=== PATIENT | male | born 1955 | race African-American/Black ===

== ENCOUNTER 2017-09-16 13:40 | Observation (INO) | payer MEDICARE ==
[2017-09-16] MEDS: NORMAL SALINE 1000 ML 1,000 ML IV PRN (15:26)
[2017-09-16 15:27] LABS: HEMATOCRIT 33.6 % (37.9-51.0); HEMOGLOBIN 11.1 g/dL (13.5-17.0); MEAN CORPUSCULAR HGB CONC 33.1 g/dL (32.0-36.0); MEAN CORPUSCULAR VOLUME 72 fl (80-97); PLATELET COUNT 249 10^3/uL (150-450); RED BLOOD COUNT 4.65 10^6/uL (4.35-5.55); RED CELL DISTRIBUTION WIDTH 23.3 % (11.5-14.0); WHITE BLOOD COUNT 4.3 10^3/uL (4.0-10.5)
[2017-09-16 15:33] LABS: ANION GAP 14 (5-19); BLOOD UREA NITROGEN 13 mg/dL (7-20); CALCIUM 9.4 mg/dL (8.4-10.2); CARBON DIOXIDE 26 mmol/L (22-30); CHLORIDE 108 mmol/L (98-107); CREATINE KINASE 831 U/L (55-170); GLUCOSE 90 mg/dL (75-110); POTASSIUM 4.3 mmol/L (3.6-5.0); SODIUM 148.2 mmol/L (137-145)
[2017-09-16] MEDS ORDERED: DEXTROSE 40% GEL 15 GM TUBE PO PRN (15:48)
[2017-09-16] MEDS ORDERED: DEXTROSE 50%-WATER SYRINGE 25 GM/50 ML DOSE IV PRN (15:48)
[2017-09-16] MEDS ORDERED: DEXTROSE 50%-WATER SYRINGE 12.5 GM/25 ML DOSE IV PRN (15:48)
[2017-09-16] MEDS ORDERED: GLUCAGON,HUMAN RECOMB 1 MG INJ IM PRN (15:48)
[2017-09-16] MEDS ORDERED: INSULIN LISPRO 100 UNIT/ML 3 ML VIAL SUBCUT PRN (15:48)
[2017-09-16] MEDS ORDERED: DEXTROSE 40% GEL 15 GM TUBE X 2 PO PRN (15:48)
[2017-09-16 15:50] LABS: FREE T4 (FREE THYROXINE) 0.77 ng/dL (0.78-2.19)
[2017-09-16 15:54] LABS: CREATINE KINASE MB 1.41 ng/mL (<4.55)
[2017-09-16 15:59] LABS: TROPONIN I < 0.012 ng/mL
[2017-09-16 16:04] LABS: THYROID STIMULATING HORMONE 0.36 uIU/mL (0.47-4.68)
--- NOTE | 2017-09-16 16:24 | RADIOLOGY REPORT (SQ) ---
EXAM DESCRIPTION: CTA CHEST COMPLETED DATE/TIME: 09/16/2017 4:06 pm REASON FOR STUDY: chest pain, COMPARISON: None. TECHNIQUE: CT scan of the chest performed using helical scanning technique with dynamic intravenous contrast injection. Images reviewed with lung, soft tissue and bone windows. Reconstructed coronal and sagittal MPR images reviewed. Additional 3 dimensional post-processing performed to develop Maximal Intensity Projection images (TN P). All images stored on PACS. All CT scanners at this facility use dose modulation, iterative reconstruction, and/or weight based d osing when appropriate to reduce radiation dose to as low as reasonably achievable (ALARA). [facility]: Dose Right [facility]: CareDose [facility]: Dose Right [facility]: Teradose 4D [facility]: uTest CONTRAST TYPE AND DOSE: contrast/concentration: Isovue 370.00 mg/ml; Total Contrast Delivered: 73.0 ml; Total Saline Delivered: 90.0 ml Contrast bolus optimized for the pulmonary arteries. Not diagnostic for the aorta. RENAL FUNCTION: Creatinine 1.1 RADIATION DOSE: CT Rad equipment meets quality standard of care and radiation dose reduction techniq ues were employed. CTDIvol: 15.0 - 15.0 mGy. DLP: 606 mGy-cm. . LIMITATIONS: None. FINDINGS: LUNGS AND PLEURA: No masses, infiltrates, pneumothorax. No pleural effusions, calcificati ons. AORTA AND GREAT VESSELS: No aneurysm. Contrast bolus not optimized for the aorta. HEART: No pericardial effusion. No significant coronary artery calcifications. PULMONARY ARTERIES: No emboli visualized in the main pulmonary arteries or the segmental branches. HILAR AND MEDIASTINAL STRUCTURES: No identified masses or abnormal nodes. HARDWARE: None in the chest. UPPER ABDOMEN: No significant findings. Limited exam. THYROID AND OTHER SOFT TISSUES: No masses. No adenopathy. BONES: No acute or significant finding. 3D MIPS: Confirm above findings. OTHER: No other significant finding. IMPRESSION: NORMAL CTA OF THE CHEST. NO PULMONARY EMBOLI. COMMENT: Quality ID # [id number]: Final reports with documentation of one or more dose reduction techniques (e.g., Automated exposure control, adjustment of the mA and/or kV according to patient size, use of iterative reconstruction technique) TECHNICAL DOCUMENTATION: JOB ID: [id number] [employer]- All Rights Reserved Reading location - IP/workstation name: [facility]
[2017-09-16 16:47] LABS: APPEARANCE,URINE SLIGHTLY-CLOUDY; BILIRUBIN,URINE NEGATIVE (NEGATIVE); COLOR,URINE YELLOW; GLUCOSE, URINE NEGATIVE (NEGATIVE); KETONES,URINE NEGATIVE (NEGATIVE); LEUKOCYTE ESTERASE,URINE NEGATIVE (NEGATIVE); NITRITE,URINE NEGATIVE (NEGATIVE); PROTEIN,URINE 100 mg/dL (NEGATIVE); URINE SPECIFIC GRAVITY 1.041
--- NOTE | 2017-09-16 20:43 | PDOC H&P ---
History of Present Illness Admission Date/PCP: 09/16/17 13:40 THERESA DUENAS MD History of Present Illness: HELENA CARRILLO is a 61 year old male, He came to the office today for evaluation of chest pain, the chest pain is left-sided, there is involvement of the posterior aspect of the chest, the chest pain is not typical to suggest angina. He has history of type 2 diabetes mellitus, diet-controlled A1c is 5.3. He was admitted directly from the office to the hospital for evaluation, CTA chest was done, was negative for pulmonary embolus or any acute aortic aneurysm dissection Past Medical History Endocrine Medical History: Reports: Diabetes Mellitus Type 2 Social History Smoking Status: Former Smoker Cigarettes Packs Per Day: 1 Number of Years Smokin Last Time Smoked: 1994 Frequency of Alcohol Use: Social Hx Recreational Drug Use: No Drugs: None Hx Prescription Drug Abuse: No Family History Family History: Reviewed & Not Pertinent Parental Family History Reviewed: Yes Children Family History Reviewed: Yes Sibling(s) Family History Reviewed.: Yes Medication/Allergy Home Medications: No Home Medications 09/16/17 Allergies/Adverse Reactions: No Known Allergies Allergy (Unverified 06/10/14 19:44) Review of Systems Constitutional: ABSENT: chills, fever(s), headache(s), weight gain, weight loss Eyes: ABSENT: visual disturbances Ears: ABSENT: hearing changes Cardiovascular: PRESENT: chest pain. ABSENT: dyspnea on exertion, edema, orthropnea, palpitations Respiratory: ABSENT: cough, hemoptysis Gastrointestinal: ABSENT: abdominal pain, constipation, diarrhea, hematemesis, hematochezia, nausea, vomiting Genitourinary: ABSENT: dysuria, hematuria Musculoskeletal: ABSENT: joint swelling Integumentary: ABSENT: rash, wounds Neurological: ABSENT: abnormal gait, abnormal speech, confusion, dizziness, focal weakness, syncope Psychiatric: ABSENT: anxiety, depression, homidical ideation, suicidal ideation Endocrine: ABSENT: cold intolerance, heat intolerance, menstrual abnormalities, polydipsia, polyuria Hematologic/Lymphatic: ABSENT: easy bleeding, easy bruising, lymphadenopathy Physical Exam Vital Signs: Temp Pulse Resp BP Pulse Ox 97.9 F 81 16 149/84 H 99 09/16/17 19:07 09/16/17 19:07 09/16/17 19:07 09/16/17 19:07 09/16/17 19:07 Intake & Output 09/15/17 09/16/17 09/17/17 06:59 06:59 06:59 Intake Total 725 Output Total 450 Balance 275 Weight 95.2 kg General appearance: PRESENT: no acute distress, well-developed, well-nourished Head exam: PRESENT: atraumatic, normocephalic Eye exam: PRESENT: conjunctiva pink, EOMI, PERRLA Ear exam: PRESENT: normal external ear exam Mouth exam: PRESENT: moist, tongue midline Neck exam: PRESENT: full ROM Respiratory exam: PRESENT: clear to auscultation anyi Cardiovascular exam: PRESENT: RRR, +S1, +S2 Pulses: PRESENT: normal dorsalis pedis pul, +2 pedal pulses bilateral Vascular exam: PRESENT: normal capillary refill GI/Abdominal exam: PRESENT: normal bowel sounds, soft Rectal exam: PRESENT: deferred Neurological exam: PRESENT: alert, awake, oriented to person, oriented to place , oriented to time, oriented to situation, CN II-XII grossly intact Psychiatric exam: PRESENT: appropriate affect, normal mood Skin exam: PRESENT: dry, intact, warm Results Laboratory Results: 09/16/17 14:52 09/16/17 14:52 09/16/17 09/16/17 09/16/17 14:52 14:52 14:52 WBC 4.3 RBC 4.65 Hgb 11.1 L Hct 33.6 L MCV 72 L MCH 24.0 L MCHC 33.1 RDW 23.3 H Plt Count 249 Sodium 148.2 H Potassium 4.3 Chloride 108 H Carbon Dioxide 26 Anion Gap 14 BUN 13 Creatinine 1.11 Est GFR ( Amer) > 60 Est GFR (Non-Af Amer) > 60 Glucose 90 Calcium 9.4 TSH 0.36 L Free T4 0.77 L Urine Color Urine Appearance Urine pH Ur Specific [place] Urine Protein Urine Glucose (UA) Urine Ketones Urine Blood Urine Nitrite Ur Leukocyte Esterase Urine WBC (Auto) Urine RBC (Auto) 09/16/17 16:30 WBC RBC Hgb Hct MCV MCH MCHC RDW Plt Count Sodium Potassium Chloride Carbon Dioxide Anion Gap BUN Creatinine Est GFR ( Amer) Est GFR (Non-Af Amer) Glucose Calcium TSH Free T4 Urine Color YELLOW Urine Appearance SLIGHTLY-CLOUDY Urine pH 7.0 Ur Specific [place] 1.041 Urine Protein 100 H Urine Glucose (UA) NEGATIVE Urine Ketones NEGATIVE Urine Blood NEGATIVE Urine Nitrite NEGATIVE Ur Leukocyte Esterase NEGATIVE Urine WBC (Auto) 1 Urine RBC (Auto) 5 09/16/17 09/16/17 14:52 14:52 Creatine Kinase 831 H CK-MB (CK-2) 1.41 Troponin I < 0.012 Impressions: Chest/Abdomen CTA 09/16/17 00:00 IMPRESSION: NORMAL CTA OF THE CHEST. NO PULMONARY EMBOLI. Assessment & Plan - Diagnosis (1) Chest pain Is this a current diagnosis for this admission?: Yes
[2017-09-16 22:48] LABS: CREATINE KINASE MB 1.37 ng/mL (<4.55)
--- NOTE | 2017-09-16 22:53 | EKG REPORT ---
SEVERITY:- BORDERLINE ECG - SINUS RHYTHM PROBABLE LEFT ATRIAL ABNORMALITY : Confirmed by: Damian Dahl 16-Sep-2017 22:51:25
[2017-09-16 22:54] LABS: TROPONIN I < 0.012 ng/mL
[2017-09-16] MEDS: ACETAMINOPHEN 325 MG TABLET PO PRN (22:55)
[2017-09-17] MEDS: NORMAL SALINE 1000 ML 1,000 ML IV PRN (02:34)
[2017-09-17 05:30] LABS: ALANINE AMINOTRANSFERASE 16 U/L (21-72); ALBUMIN 3.6 g/dL (3.5-5.0); ALKALINE PHOSPHATASE 61 U/L (38-126); ASPARTATE AMINO TRANSFERASE 41 U/L (17-59); BILIRUBIN,DIRECT 0.6 mg/dL (0.0-0.4); BILIRUBIN,TOTAL 0.9 mg/dL (0.2-1.3); CREATINE KINASE 683 U/L (55-170); TOTAL PROTEIN 6.6 g/dL (6.3-8.2)
[2017-09-17 05:45] LABS: CREATINE KINASE MB 1.13 ng/mL (<4.55)
[2017-09-17 05:55] LABS: TROPONIN I < 0.012 ng/mL
[2017-09-17] MEDS ORDERED: AMLODIPINE BESYLATE 5 MG TABLET PO ONE (09:30)
[2017-09-17] MEDS: ACETAMINOPHEN 325 MG TABLET PO PRN (12:29)
[2017-09-17] MEDS ORDERED: REGADENOSON INJ 0.4 MG/5 ML DISP.SYRIN IV ONE (14:04)
[2017-09-17 15:15] LABS: CREATINE KINASE MB 1.13 ng/mL (<4.55)
[2017-09-17 15:16] LABS: TROPONIN I < 0.012 ng/mL
--- NOTE | 2017-09-17 18:10 | PDOC DISCHARGE SUMMARY ---
General - Admit/Disc Date/PCP Admission Date/Primary Care Provider: 09/16/17 13:40 THERESA DUENAS MD Discharge Date: 09/17/17 - Discharge Diagnosis (1) Chest pain Is this a current diagnosis for this admission?: Yes (2) Rhabdomyolysis Is this a current diagnosis for this admission?: Yes - Additional Information Prescriptions: Cyclobenzaprine HCl 10 mg PO Q8H #60 tablet Home Medications: Cyclobenzaprine HCl 10 mg PO Q8H #60 tablet 09/17/17 History of Present Illness History of Present Illness: HELENA CARRILLO is a 61 year old male, He came to the office today for evaluation of chest pain, the chest pain is left-sided, there is involvement of the posterior aspect of the chest, the chest pain is not typical to suggest angina. He has history of type 2 diabetes mellitus, diet-controlled A1c is 5.3. He was admitted directly from the office to the hospital for evaluation, CTA chest was done, was negative for pulmonary embolus or any acute aortic aneurysm dissection Hospital Course Hospital Course: Patient was admitted for the evaluation of atypical chest pain, CTA chest was negative for pulmonary embolism, Cardiolite stress test was negative for any acute reversibility. He admitted to engaging in heavy isometric exercises, weightlifting, the CPK was elevated but troponin was normal suggesting rhabdomyolysis, he was treated with IV fluid. He be discharged home today Physical Exam Vital Signs: Temp Pulse Resp BP Pulse Ox 98.0 F 81 18 146/84 H 100 09/17/17 15:26 09/17/17 15:26 09/17/17 15:26 09/17/17 15:26 09/17/17 15:26 Intake & Output 09/16/17 09/17/17 09/18/17 06:59 06:59 06:59 Intake Total 961 996 Output Total 450 Balance 511 996 Weight 98.3 kg 98.3 kg General appearance: PRESENT: no acute distress, well-developed, well-nourished Head exam: PRESENT: atraumatic, normocephalic Eye exam: PRESENT: conjunctiva pink, EOMI, PERRLA Ear exam: PRESENT: normal external ear exam Mouth exam: PRESENT: moist, tongue midline Neck exam: PRESENT: full ROM Respiratory exam: PRESENT: clear to auscultation anyi Cardiovascular exam: PRESENT: RRR, +S1, +S2 Pulses: PRESENT: normal dorsalis pedis pul, +2 pedal pulses bilateral Vascular exam: PRESENT: normal capillary refill GI/Abdominal exam: PRESENT: normal bowel sounds, soft Rectal exam: PRESENT: deferred Neurological exam: PRESENT: alert, awake, oriented to person, oriented to place , oriented to time, oriented to situation, CN II-XII grossly intact Psychiatric exam: PRESENT: appropriate affect, normal mood Skin exam: PRESENT: dry, intact, warm Results Laboratory Results: 09/16/17 14:52 09/16/17 14:52 09/17/17 04:45 Total Bilirubin 0.9 AST 41 ALT 16 L Alkaline Phosphatase 61 Total Protein 6.6 Albumin 3.6 09/16/17 09/16/17 09/16/17 14:52 14:52 22:15 Creatine Kinase 831 H 755 H CK-MB (CK-2) 1.41 Troponin I < 0.012 09/16/17 09/17/17 09/17/17 22:15 04:45 04:45 Creatine Kinase 683 H CK-MB (CK-2) 1.37 1.13 Troponin I < 0.012 < 0.012 09/17/17 09/17/17 14:24 14:24 Creatine Kinase 593 H CK-MB (CK-2) 1.13 Troponin I < 0.012 Impressions: Chest/Abdomen CTA 09/16/17 00:00 IMPRESSION: NORMAL CTA OF THE CHEST. NO PULMONARY EMBOLI. Qualifiers - * PATIENT BEING DISCHARGED WITH ANY OF THE FOLLOWING DIAGNOSIS: No
[2017-09-17 18:20] VITALS: BP 138/82
--- NOTE | 2017-09-17 19:17 | DRAGON STRESS TEST REPORT ---
Intravenous Lexiscan Cardiolite stress test using single photon emmision computerized tomography. Date of procedure: 09/17/2017. Ordering Provider: Dr. Saldaña. Patient's status: In Patient Indication: Chest pain. Coronary risk factors: Age, diabetes mellitus, and hypertension Resting EKG: Sinus Rhythm. One PVC. Probably normal EKG. Stress EKG: No changes of ischemia. The patient had no chest pain or discomfort and there were no arrhythmias seen. Reason for termination: Protocol. Conclusions: Normal EKG and hemodynamic response to IV Lexiscan. Nuclear data: At rest the patient was given 14.69 millicuries of technetium 99m sestamibi injected intravenously. As per protocol rest non gated SPECT images were obtained. Subsequently the patient was given intravenous Lexiscan at a dose of 0.4 mg in 5 mL intravenously, followed by flush with normal saline. Subsequently the stress dose of 42.8 millicuries of technetium 99m sestamibi was injected intravenously. As per protocol stress gated images were obtained. Nuclear interpretation: Review of images showed that all segments of the myocardium had normal perfusion at rest, and normal perfusion post stress with IV Lexiscan. All segments of the myocardium had normal motion, contraction, and thickening by gated study. T. I D. ratio was normal at 1.09. Computer read rest, and stress left ventricular ejection fraction were 46 %, and 53 %, respectively. Visually both the stress and rest ejection fractions were normal, and greater than 55%. Conclusion: 1. There is no scintigraphic evidence of Lexiscan induced myocardial ischemia. 2. There is no scintigraphic evidence of myocardial infarction/scar. Recommendations: Aggressive risk factor modification, and treating the underlying co- morbidities. Above findings were discussed with Dr. Saldaña by telephone. [place]
== END 2017-09-17 18:48 | disposition home or self-care (01) ==
LOC: 3W 13:40 → INTOOBSV 13:40
PROVIDERS: ADMIT Internal Medicine; ATTEND Internal Medicine
DX: R07.9 Chest pain, unspecified (principal); M62.82 Rhabdomyolysis; E11.9 Type 2 diabetes mellitus without complications; Z87.891 Personal history of nicotine dependence
CPT/HCPCS: 36415 ×2; 84439; 82553 ×2; 82962 ×2; 82550 ×2; 84443; 85027; 80076; 80048; 81001; 84484 ×2; 83036; 93017; 78452; 71275; 93005; 93010; G0378; G0379; A9500; J2785; A9270 ×3; J7030 ×2

== ENCOUNTER 2018-07-04 04:08 | Emergency (ER) | payer MEDICARE ==
[2018-07-04] MEDS ORDERED: OXYMETAZOLINE HCL 0.05% NASAL SPRAY 15 ML BOTTLE NASL ONE (04:30)
--- NOTE | 2018-07-04 04:39 | ER Document Report ---
ED ENT - General Mode of Arrival: Ambulatory Information source: Patient TRAVEL OUTSIDE OF THE [place] IN LAST 30 DAYS: No - HPI Patient complains to provider of: Nose problem - General Chief Complaint: Nose Bleed Stated Complaint: NOSE BLEED Time Seen by Provider: 07/04/18 04:26 Primary Care Provider: THERESA DUENAS MD [Primary Care Provider] - Follow up as needed - [facility] Notes: Patient arrives with complaints of nosebleed from the left nostril. Bleeding started approximately an hour prior to his arrival. He denies any injury or fall. He is not on blood thinning medications. He denies any dizziness, chest pain, shortness of breath. States that he has been been able to get the bleeding to stop. He denies taking any chronic medications on a daily basis. He denies any drug use. No cocaine use. He denies any rashes. He denies any unilateral numbness, tingling, weakness. No pain anywhere. No blurred or loss vision. No other complaints. (DAYANA ARANDA) - Related Data Allergies/Adverse Reactions: No Known Allergies Allergy (Unverified 06/10/14 19:44) Past Medical History - Social History Smoking Status: Unknown if Ever Smoked Family History: Reviewed & Not Pertinent Endocrine Medical History: Reports: Hx Diabetes Mellitus Type 2 Malignancy Medical History: Reports Hx Prostate Cancer Psychiatric Medical History: Denies: Hx Depression Review of Systems - Review of Systems -: Yes All other systems reviewed and negative Physical Exam - Vital signs Vitals: Resp BP Pulse Ox 15 100/73 95 07/04/18 05:29 07/04/18 05:29 07/04/18 05:29 - Notes Notes: GENERAL: alert, cooperative, nontoxic, no distress. HEAD: normocephalic, atraumatic EYES: conjunctiva pink without discharge, no external redness or swelling. EARS: no external swelling, no external redness, no mastoid redness, swelling, tenderness. Ear canals are clear without swelling or drainage. TMs pearly huitron, no redness, no bulging, normal landmarks, no perforation. NOSE: atraumatic, no external swelling. Skin bleeding noted from the left nostril. Initially unable to visualize any obvious are we have bleeding was coming from. An Afrin-soaked cotton ball was placed in the nose patient is currently holding pressure on his nostrils at this time and I will recheck shortly. MOUTH/THROAT: mucous membranes moist and pink, posterior pharynx without erythema, swelling, exudate. No trismus or drooling. Blood noted within the posterior pharynx. NECK: soft, supple, full range of motion, no meningismus. CHEST: no distress, lungs clear and equal throughout. No wheezing, rales, rhonchi. CARDIAC: regular rate and rhythm, no murmur, normal capillary refill, normal pulses. No peripheral edema noted. BACK: full range of motion, no CVA tenderness. EXTREMITIES: full range of motion of all extremities. No redness, no swelling. NEURO: alert and oriented A&O3, no focal deficits, full range of motion of all extremities. PYSCH: appropriate mood, affect. Patient is cooperative. SKIN: pink, warm, dry, no rash. (DAYANA ARANDA) Course - Laboratory Result Diagrams: 07/04/18 05:18 07/04/18 05:18 - Re-evaluation Re-evalutation: 07/04/18 04:52 I personally evaluated this patient and agree with plan of care. Patient received Afrin and was holding pressure prior to my evaluation. He is still having bleeding from his left nostril. He is in no acute respiratory distress. Patient will likely require packing if Afrin does not stop the bleeding shortly. (ALESSANDRO CHADWICK) 07/04/18 05:11 Patient continued to have nosebleed despite Afrin soaked cotton balls and pressure. Placed a 7-1/2 cm Rhino Rocket in the left nare. Patient did not tolerate this procedure extremely well as he was having a lot of pain, hard to feel somewhat faint and got diaphoretic. Heart rate remains in the 60s, his blood pressure slightly lower in the 100s. Leg and back as much as we could not too much due to the nosebleed. Cool towels were applied to his head. We will start an IV, check labs to be sure that he has not lost too much blood, given IV liter of normal saline, and we will continue to monitor. At this point, it appears that the bleeding has stopped from the left nostril. We will continue to monitor at this time. 07/04/18 05:48 Nosebleed seems to have stopped. He states he is starting to feel somewhat better. Currently awaiting blood results. IV fluids are running, blood pressure is stable, heart rate is stable, patient is stable at this time. We will continue to monitor. 07/04/18 06:35 No further bleeding from the patient's left nostril. Vital signs have stabilized. Lab work is unremarkable aside from a slightly low hemoglobin of 9- 1/2. This is down about 1-1/2 from last year. This point the patient is feeling okay and can be discharged home with prescription for antibiotics, pain medicine, referral to ENT for recheck in 2 days, instructions to follow-up with his primary care doctor in a few days to have his hemoglobin rechecked. Follow- up for worsening pain, fever, worsening bleeding, persistent vomiting, or for any further concerns. The patient's emergency department workup and current diagnosis were explained to the patient and or family. Follow-up instructions were provided. Medications if prescribed were discussed. Instructions for when to return to the emergency department including specific worrisome symptoms were discussed with the patient and/or family. (DAYANA ARANDA) - Vital Signs Vital signs: Temp Pulse Resp BP Pulse Ox 97.8 F 18 121/68 99 07/04/18 06:01 07/04/18 06:01 07/04/18 06:01 07/04/18 05:42 - Laboratory Laboratory results interpreted by me: 07/04/18 07/04/18 05:18 05:18 RBC 3.87 L Hgb 9.7 L Hct 29.2 L MCV 75 L MCH 25.1 L RDW 20.1 H Seg Neutrophils % 35.8 L Monocytes % 18.4 H Creatinine 1.46 H Est GFR ( Amer) 59 L Est GFR (Non-Af Amer) 49 L Glucose 150 H Total Protein 5.5 L Albumin 3.3 L Procedures - Additional Procedures Epistaxis treatment Additional Procedures: Other - 7-1/2 cm Rhino Rocket placed within the left nare. Was inflated. Patient had what appeared to be a vasovagal episode during placement. Otherwise patient tolerated procedure well. Bleeding does seem to have stopped. Discharge - Discharge Clinical Impression: Epistaxis Condition: Stable Disposition: HOME, SELF-CARE Instructions: Nosebleed Instructions (OM) Additional Instructions: Take medications as prescribed. Keep packing in place. Apply ice packs to your nose. Follow-up with ENT in 2 days to have packing removed and have your nose reevaluated. Follow-up with your primary care doctor in the next few days to have her hemoglobin rechecked. Her hemoglobin was 9.5 today. Follow-up sooner for worsening bleeding, severe pain, persistent vomiting, fever, or for any further concerns. Prescriptions: Cephalexin Monohydrate [Keflex 500 mg Capsule] 500 mg PO Q6H 5 Days capsule Hydrocodone/Acetaminophen [[place] 5-325 mg Tablet] 2 tab PO Q6H PRN #15 tab PRN Reason: Referrals: THERESA DUENAS MD [Primary Care Provider] - Follow up as needed DAYSI MORRIS DO [ASSOCIATE] - Follow up as needed
[2018-07-04] MEDS ORDERED: NORMAL SALINE 1000 ML 1,000 ML IV ONE (05:10)
[2018-07-04 05:40] LABS: ABSOLUTE BASOPHILS # (AUTO) 0.1 10^3/uL (0.0-0.2); ABSOLUTE LYMPHOCYTES (AUTO) 2.9 10^3/uL (0.5-4.7); ABSOLUTE MONOCYTES (AUTO) 1.2 10^3/uL (0.1-1.4); ABSOLUTE NEUT (AUTO) 2.3 10^3/uL (1.7-8.2); BASOPHILS % (AUTO) 0.9 % (0-2); EOSINOPHILS % (AUTO) 0.2 % (0-6); HEMATOCRIT 29.2 % (37.9-51.0); HEMOGLOBIN 9.7 g/dL (13.5-17.0); LYMPHOCYTES % (AUTO) 44.7 % (13-45); MEAN CORPUSCULAR HEMOGLOBIN 25.1 pg (27.0-33.4); MEAN CORPUSCULAR HGB CONC 33.3 g/dL (32.0-36.0); MEAN CORPUSCULAR VOLUME 75 fl (80-97); MONOCYTES % (AUTO) 18.4 % (3-13); PLATELET COUNT 324 10^3/uL (150-450); RED BLOOD COUNT 3.87 10^6/uL (4.35-5.55); RED CELL DISTRIBUTION WIDTH 20.1 % (11.5-14.0); SEGMENTED NEUTROPHILS % (AUTO) 35.8 % (42-78); TOTAL CELLS COUNTED % (AUTO) 100 %; WHITE BLOOD COUNT 6.5 10^3/uL (4.0-10.5)
[2018-07-04 05:45] LABS: INTERNATIONAL RATION (INR) 0.96; PARTIAL THROMBOPLASTIN TIME 23.6 SEC (23.5-35.8); PROTHROMBIN TIME 13.2 SEC (11.4-15.4)
[2018-07-04 05:57] LABS: ALANINE AMINOTRANSFERASE 26 U/L (21-72); ALBUMIN 3.3 g/dL (3.5-5.0); ALKALINE PHOSPHATASE 72 U/L (38-126); ANION GAP 11 (5-19); ASPARTATE AMINO TRANSFERASE 44 U/L (17-59); BILIRUBIN,DIRECT 0.4 mg/dL (0.0-0.4); BILIRUBIN,TOTAL 0.4 mg/dL (0.2-1.3); BLOOD UREA NITROGEN 15 mg/dL (7-20); CALCIUM 9.3 mg/dL (8.4-10.2); CARBON DIOXIDE 25 mmol/L (22-30); CHLORIDE 107 mmol/L (98-107); GLUCOSE 150 mg/dL (75-110); POTASSIUM 3.6 mmol/L (3.6-5.0); SODIUM 142.9 mmol/L (137-145); TOTAL PROTEIN 5.5 g/dL (6.3-8.2)
[2018-07-04 06:48] VITALS: BP 114/71
== END 2018-07-04 06:48 | disposition home or self-care (01) ==
LOC: ER 04:08
DX: R04.0 Epistaxis (principal); R61 Generalized hyperhidrosis; R52 Pain, unspecified; E11.9 Type 2 diabetes mellitus without complications; Z85.46 Personal history of malignant neoplasm of prostate
CPT/HCPCS: 99283; 96360; 36415; 85025; 85610; 85730; 80053; 30901; J3490; J7030

== ENCOUNTER 2018-07-05 03:11 | Emergency (ER) | payer MEDICARE ==
--- NOTE | 2018-07-05 03:44 | ER Document Report ---
ED ENT - General Chief Complaint: Nose Bleed Stated Complaint: NOSE BLEED Time Seen by Provider: 07/05/18 03:25 Primary Care Provider: THERESA DUENAS MD [Primary Care Provider] - Follow up as needed DAYSI MORRIS DO [ASSOCIATE] - Follow up tomorrow TRAVEL OUTSIDE OF THE [place] IN LAST 30 DAYS: No - HPI Notes: Patient is a 62-year-old male that presents to the emergency department for chief complaint of epistaxis. Patient had epistaxis yesterday evening with left nares Rhino Rocket placed. He states around 0100 this morning the bleeding reoccurred. He states that he los t some blood but not a significant amount compared to yesterday. The bleeding has now stopped. He denies any trauma to the area. He denies any manipulation to the Rhino Rocket. Patient has an appointment with ENT tomorrow for follow- up. He is not on any blood thinning medications and denies feeling lightheaded or nauseated. He states the pain is tolerable. Past Medical History: Reviewed in chart Past Surgical History: Reviewed in chart Social History: Reviewed in chart Family History: Reviewed and noncontributory for presenting illness Allergies: Reviewed, see documented allergy list. REVIEW OF SYSTEMS: CONSTITUTIONAL : No fever No chills No diaphoresis No recent illness EENT: Epistaxis No vision changes No congestion No sore throat CARDIOVASCULAR: No chest pain No palpitations RESPIRATORY: No shortness of breath No cough No difficulty breathing GASTROINTESTINAL: No abdominal pain No nausea No vomiting No diarrhea GENITOURINARY: No dysuria No hematuria No difficulty urinating MUSCULOSKELETAL: No back pain No leg pain No arm pain SKIN: No rashes No lesions LYMPHATIC: No swollen, enlarged glands. NEUROLOGICAL: No lightheadedness No headache No weakness No paresthesias PSYCHIATRIC: No anxiety No depression PHYSICAL EXAMINATION: Vital signs reviewed, nursing noted reviewed. GENERAL: Well-appearing, well-nourished and in no acute distress. HEAD: Atraumatic, normocephalic. EYES: Eyes appear normal, extraocular movements intact, sclera anicteric, conjunctiva are normal. ENT: Rhino Rocket in left nares with no active epistaxis, oropharynx clear without exudates. No bleeding in posterior oropharynx, moist mucous membranes. NECK: Normal range of motion, supple without lymphadenopathy LUNGS: Breath sounds clear to auscultation bilaterally and equal. No wheezes rales or rhonchi. HEART: Regular rate and rhythm without murmurs ABDOMEN: Soft, nontender, normoactive bowel sounds. No rebound, guarding, or rigidity. No masses appreciated. EXTREMITIES: Nontender, good range of motion, no pitting or edema. NEUROLOGICAL: No focal neurological deficits. Moves all extremities spontaneously Motor and sensory grossly intact on exam. PSYCH: Normal mood, normal affect. SKIN: Warm, Dry, normal turgor, no rashes or lesions noted on exposed skin - Related Data Allergies/Adverse Reactions: No Known Allergies Allergy (Unverified 06/10/14 19:44) Past Medical History - Social History Smoking Status: Unknown if Ever Smoked Family History: Reviewed & Not Pertinent Patient has suicidal ideation: No Patient has homicidal ideation: No Endocrine Medical History: Reports: Hx Diabetes Mellitus Type 2 Renal/ Medical History: Denies: Hx Peritoneal Dialysis Malignancy Medical History: Reports Hx Prostate Cancer Psychiatric Medical History: Denies: Hx Depression Physical Exam - Vital signs Vitals: Temp Pulse Resp BP Pulse Ox 98.4 F 112 H 18 157/100 H 96 07/05/18 03:12 07/05/18 03:12 07/05/18 03:12 07/05/18 03:12 07/05/18 03:12 Course - Re-evaluation Re-evalutation: 07/05/18 03:43 Vitals reviewed. Nursing notes reviewed. Patient's epistaxis is currently stopped. The balloon on his Rhino Rocket seem to have deflated a little and I placed 2 mL of air in the balloon. Patient tolerated this well. He does not want any medication for pain. He will be monitored for recurrence of his bleeding. 07/05/18 04:16 Patient reevaluated. He has not had any bleeding since inflating his Rhino Rocket balloon. He has remained stable. He is complaining of pain in the area since increasing the pressure in the balloon and will be given a dose of [place] prior to discharge. Patient will follow with ENT in 1 day for removal of the Rhino Rocket and further evaluation. Current heart rate 85, BP 160/99, this is improved since presentation. - Vital Signs Vital signs: Temp Pulse Resp BP Pulse Ox 98.4 F 112 H 18 157/100 H 96 07/05/18 03:12 07/05/18 03:12 07/05/18 03:12 07/05/18 03:12 07/05/18 03:12 Discharge - Discharge Clinical Impression: Epistaxis Condition: Stable Disposition: HOME, SELF-CARE Instructions: Nosebleed Instructions ([facility]) Additional Instructions: Please return to the emergency department if you have any worsening, or concern of your symptoms. Please return to the emergency department if you develop chest pain, difficulty breathing, severe abdominal pain, or ongoing vomiting. Please follow-up with your primary care physician in 2-3 days and any other recommended physicians. If prescribed, take all medications as directed. If you have any questions or concerns do not hesitate to return the emergency department for evaluation. Return to the emergency room if you have recurrence of your bleeding, increasing pain or fevers. Referrals: THERESA DUENAS MD [Primary Care Provider] - Follow up as needed DAYSI MORRIS DO [ASSOCIATE] - Follow up tomorrow
[2018-07-05] MEDS ORDERED: HYDROCODONE/ACETAMINOPHEN 5-325 MG TABLET PO ONE (04:16)
[2018-07-05 04:25] VITALS: BP 160/99
== END 2018-07-05 04:33 | disposition home or self-care (01) ==
LOC: ER 03:11
DX: R04.0 Epistaxis (principal); E11.9 Type 2 diabetes mellitus without complications
CPT/HCPCS: 99282; 82962; 30901; A9270

== ENCOUNTER 2018-07-05 11:15 | Emergency (ER) | payer MEDICARE ==
--- NOTE | 2018-07-05 11:35 | ER Document Report ---
ED Medical Screen (RME) - General Chief Complaint: Nose Bleed Stated Complaint: NOSE BLEED Time Seen by Provider: 07/05/18 11:27 Primary Care Provider: THERESA DUENAS MD [Primary Care Provider] - Follow up as needed Mode of Arrival: Ambulatory Information source: Patient, Relative Notes: Patient presents to the emergency department for the third time for nosebleed. Patient has had a Rhino Rocket in place with blood bleeding around. Lab work was done yesterday. Patient was evaluated by his primary care provider Dr. Duenas this morning. He was sent to the emergency department. I contacted Dr. barnett ENT, and he would like labs repeated. He reports patient has to become normotensive to stop the nosebleed. Blood pressure is 154/91. Patient does not have a history of high blood pressure. I have greeted and performed a rapid initial assessment of this patient. A comprehensive ED assessment and evaluation of the patient, analysis of test results and completion of the medical decision making process will be conducted by additional ED providers. TRAVEL OUTSIDE OF THE [place] IN LAST 30 DAYS: No - Related Data Allergies/Adverse Reactions: No Known Allergies Allergy (Verified 07/05/18 11:17) Past Medical History Endocrine Medical History: Reports: Hx Diabetes Mellitus Type 2 Renal/ Medical History: Denies: Hx Peritoneal Dialysis Malignancy Medical History: Reports Hx Prostate Cancer Psychiatric Medical History: Denies: Hx Depression - Immunizations History of Influenza Vaccine for 12/2016 - 05/2017 Season: Unknown Physical Exam - Vital signs Vitals: Temp Pulse Resp BP Pulse Ox 98.4 F 93 20 154/91 H 97 07/05/18 11:25 07/05/18 11:25 07/05/18 11:25 07/05/18 11:25 07/05/18 11:25 Course - Vital Signs Vital signs: Temp Pulse Resp BP Pulse Ox 98.4 F 93 20 154/91 H 97 07/05/18 11:25 07/05/18 11:25 07/05/18 11:25 07/05/18 11:25 07/05/18 11:25 Doctor's Discharge - Discharge Referrals: THERESA DUENAS MD [Primary Care Provider] - Follow up as needed
[2018-07-05 11:53] LABS: ABSOLUTE LYMPHOCYTES (AUTO) 1.5 10^3/uL (0.5-4.7); ABSOLUTE MONOCYTES (AUTO) 1.4 10^3/uL (0.1-1.4); ABSOLUTE NEUT (AUTO) 5.8 10^3/uL (1.7-8.2); BASOPHILS % (AUTO) 0.5 % (0-2); HEMATOCRIT 29.7 % (37.9-51.0); HEMOGLOBIN 10.1 g/dL (13.5-17.0); LYMPHOCYTES % (AUTO) 16.9 % (13-45); MEAN CORPUSCULAR HEMOGLOBIN 25.4 pg (27.0-33.4); MEAN CORPUSCULAR HGB CONC 33.9 g/dL (32.0-36.0); MEAN CORPUSCULAR VOLUME 75 fl (80-97); PLATELET COUNT 318 10^3/uL (150-450); RED BLOOD COUNT 3.95 10^6/uL (4.35-5.55); RED CELL DISTRIBUTION WIDTH 20.1 % (11.5-14.0); SEGMENTED NEUTROPHILS % (AUTO) 66.6 % (42-78); TOTAL CELLS COUNTED % (AUTO) 100 %; WHITE BLOOD COUNT 8.7 10^3/uL (4.0-10.5)
[2018-07-05 11:59] LABS: INTERNATIONAL RATION (INR) 0.96; PROTHROMBIN TIME 13.3 SEC (11.4-15.4)
[2018-07-05 12:00] LABS: PARTIAL THROMBOPLASTIN TIME 25.6 SEC (23.5-35.8)
[2018-07-05] MEDS ORDERED: ACETAMINOPHEN 325 MG TABLET PO ONE (12:09)
[2018-07-05 12:15] LABS: ALANINE AMINOTRANSFERASE 29 U/L (21-72); ALKALINE PHOSPHATASE 72 U/L (38-126); ANION GAP 13 (5-19); ASPARTATE AMINO TRANSFERASE 34 U/L (17-59); BILIRUBIN,DIRECT 0.5 mg/dL (0.0-0.4); BILIRUBIN,TOTAL 0.6 mg/dL (0.2-1.3); BLOOD UREA NITROGEN 15 mg/dL (7-20); CALCIUM 9.7 mg/dL (8.4-10.2); CARBON DIOXIDE 28 mmol/L (22-30); CHLORIDE 100 mmol/L (98-107); GLUCOSE 112 mg/dL (75-110); POTASSIUM 4.2 mmol/L (3.6-5.0); SODIUM 140.6 mmol/L (137-145); TOTAL PROTEIN 7.3 g/dL (6.3-8.2)
[2018-07-05] MEDS ORDERED: LISINOPRIL 10 MG TABLET PO ONE (12:33)
--- NOTE | 2018-07-05 13:35 | ER Document Report ---
ED General - General Chief Complaint: Nose Bleed Stated Complaint: NOSE BLEED Time Seen by Provider: 07/05/18 11:27 Primary Care Provider: THERESA UDENAS MD [Primary Care Provider] - Follow up as needed Mode of Arrival: Ambulatory TRAVEL OUTSIDE OF THE [place] IN LAST 30 DAYS: No - HPI Notes: Patient presents to the emergency department for evaluation of a nosebleed. He had a nosebleed, Rhino Rocket placed yesterday morning. He states this morning it started bleeding again. He went to see his primary care physician, who sent him to the ED for further evaluation. His primary care physician is spoken to ENT, who recommended his blood pressure be better controlled. The patient does not have a history of high blood pressure. He complains of being uncomfortable, some pressure in the area of his packing. He states the Vicodin made him feel worse. He denies any other acute complaints or concerns. He is not currently on any blood thinners of any sort. - Related Data Allergies/Adverse Reactions: No Known Allergies Allergy (Verified 07/05/18 11:17) Past Medical History - General Information source: Patient, Relative - Social History Smoking Status: Never Smoker Family History: Reviewed & Not Pertinent Patient has suicidal ideation: No Patient has homicidal ideation: No Endocrine Medical History: Reports: Hx Diabetes Mellitus Type 2 - Diet- controlled Renal/ Medical History: Denies: Hx Peritoneal Dialysis Malignancy Medical History: Reports Hx Prostate Cancer Psychiatric Medical History: Denies: Hx Depression Review of Systems - Review of Systems Constitutional: No symptoms reported EENT: See HPI Cardiovascular: No symptoms reported Respiratory: No symptoms reported Gastrointestinal: No symptoms reported Genitourinary: No symptoms reported Musculoskeletal: No symptoms reported Skin: No symptoms reported Neurological/Psychological: No symptoms reported Physical Exam - Vital signs Vitals: Temp Pulse Resp BP Pulse Ox 98.4 F 93 20 154/91 H 97 07/05/18 11:25 07/05/18 11:25 07/05/18 11:25 07/05/18 11:25 07/05/18 11:25 - Notes Notes: Vital signs reviewed, please refer to chart. Patient is normocephalic, atraumatic. Pupils equal round, reactive to light. Patient has Rhino Rocket in place left nare. There is no active bleeding. No bleeding noted on the right nostril. No blood in the posterior pharynx. Neck is supple without meningismus. Heart is regular rate and rhythm. Lungs are clear to auscultation bilaterally. Abdomen is soft, nontender, normoactive bowel sounds throughout. Extremities without cyanosis, clubbing, edema. Peripheral pulses are equal. Skin is warm and dry. Patient is awake, alert, neurological exam is nonfocal. Course - Re-evaluation Re-evalutation: 07/05/18 13:33 Patient presented to the emergency department for evaluation. Laboratory investigations revealed his hemoglobin is stable. I spoke with Dr. Ardon chart 1224. He stated that blood pressure of 154 systolic could be responsible for his continued bleeding. He recommended that we control that better. I spoke to his primary care physician, Dr. Duenas. We did discuss the possibility of starting him on low-dose medication for his blood pressure. He was given lisinopril here. We will give him a two-week supply of this. He is to follow- up with ENT tomorrow, return to the emergency department with worsening or new concerning symptoms. 07/05/18 18:40 Patient was maintained here in the emergency department as his blood pressure remained elevated. He stated he did not want to go home because of this, stating he thought his nose would bleed again. He was medicated here with lisinopril than clonidine. His blood pressure remained elevated, but he never did have recurrence of his epistaxis. At this point all guidance on the patient home. He Edgar has ENT follow-up tomorrow. He is to return to the emergency department with worsening or new concerning symptoms. - Vital Signs Vital signs: Temp Pulse Resp BP Pulse Ox 98.4 F 92 20 170/90 H 97 07/05/18 11:25 07/05/18 15:15 07/05/18 16:18 07/05/18 16:18 07/05/18 16:18 - Laboratory Result Diagrams: 07/05/18 11:42 07/05/18 11:42 Laboratory results interpreted by me: 07/05/18 07/05/18 11:42 11:42 RBC 3.95 L Hgb 10.1 L Hct 29.7 L MCV 75 L MCH 25.4 L RDW 20.1 H Monocytes % 16.0 H Glucose 112 H Direct Bilirubin 0.5 H Discharge - Discharge Clinical Impression: Epistaxis, recurrent, Hypertension Condition: Stable Disposition: HOME, SELF-CARE Instructions: Nosebleed Instructions ([facility]) Additional Instructions: Take medication as prescribed, starting tomorrow. Try not to touch the nose as discussed. Follow-up with ENT tomorrow. Return to the emergency department with worsening or new concerning symptoms. Prescriptions: Lisinopril [Prinivil] 10 mg PO DAILY #14 tablet Referrals: THERESA DUENAS MD [Primary Care Provider] - Follow up as needed
[2018-07-05] MEDS ORDERED: CLONIDINE HCL 0.1 MG TABLET PO ONE (14:30)
[2018-07-05 16:19] VITALS: BP 170/90
== END 2018-07-05 16:19 | disposition home or self-care (01) ==
LOC: ER 11:15
DX: R04.0 Epistaxis (principal); I10 Essential (primary) hypertension; E11.9 Type 2 diabetes mellitus without complications; Z85.46 Personal history of malignant neoplasm of prostate
CPT/HCPCS: 99283; 36415; 85025; 85610; 85730; 80053; A9270 ×3

== ENCOUNTER 2018-07-15 18:09 | Observation (INO) | payer MEDICARE ==
[2018-07-15] MEDS ORDERED: METHYLPREDNISOLONE INJ 125 MG/2 ML SDV ONE (18:13)
[2018-07-15] MEDS ORDERED: EPINEPHRINE INJ/PF 1 MG/1 ML AMPULE ONE (18:13)
[2018-07-15] MEDS ORDERED: DIPHENHYDRAMINE HCL 50 MG/ML VIAL ONE (18:13)
[2018-07-15] MEDS ORDERED: EPINEPHRINE INJ/PF 1 MG/1 ML AMPULE IM ONE (18:15)
[2018-07-15] MEDS ORDERED: TRANEXAMIC ACID INJ/PF 1,000 MG/10 ML SDV IV ONE ×2 (18:18→18:20)
[2018-07-15] MEDS ORDERED: FAMOTIDINE INJ/PF 20 MG/2 ML SDV IV ONE ×2 (18:20→18:43)
[2018-07-15] MEDS ORDERED: METHYLPREDNISOLONE INJ 125 MG/2 ML SDV IV ONE (18:42)
[2018-07-15] MEDS ORDERED: DIPHENHYDRAMINE HCL 50 MG/ML VIAL IV ONE (18:42)
--- NOTE | 2018-07-15 18:48 | ER Document Report ---
ED General - General Chief Complaint: Facial Swelling Stated Complaint: FACIAL SWELLING Time Seen by Provider: 07/15/18 18:28 Mode of Arrival: Ambulatory Information source: Patient, Relative, [facility] Records Notes: 62-year-old male with hypertension, type 2 diabetes on lisinopril presents with lip and tongue swelling that started just prior to arrival. Patient denies prior similar symptoms, difficulty swallowing, wheezing, shortness of breath. Patient was started on lisinopril approximately 2 months ago for his hypertension. TRAVEL OUTSIDE OF THE [place] IN LAST 30 DAYS: No - HPI Onset: Just prior to arrival Onset/Duration: Sudden Quality of pain: No pain Associated symptoms: denies: Chest pain, Nausea, Vomiting, Shortness of breath Exacerbated by: Denies Relieved by: Denies Similar symptoms previously: No Recently seen / treated by doctor: No - Related Data Allergies/Adverse Reactions: No Known Allergies Allergy (Verified 07/15/18 18:33) Past Medical History - General Information source: Patient, Relative - Social History Smoking Status: Never Smoker Chew tobacco use (# tins/day): No Frequency of alcohol use: None Drug Abuse: None Lives with: Spouse/Significant other Family History: Reviewed & Not Pertinent Patient has suicidal ideation: No Patient has homicidal ideation: No - Past Medical History Cardiac Medical History: Reports: Hx Hypertension Endocrine Medical History: Reports: Hx Diabetes Mellitus Type 2 - Diet- controlled Renal/ Medical History: Denies: Hx Peritoneal Dialysis Malignancy Medical History: Reports Hx Prostate Cancer Psychiatric Medical History: Denies: Hx Depression Review of Systems - Review of Systems Notes: REVIEW OF SYSTEMS: CONSTITUTIONAL : Denies fever, chills, or sweats. Denies recent illness. Denies weight loss, recent hospitalizations. EENT: Denies visual changes, eye pain. Denies sore throat, oral lesions, difficulty swallowing. CARDIOVASCULAR: Denies chest pain. Denies palpitations. Denies lower extremity edema. RESPIRATORY: Denies cough. Denies shortness of breath, wheezing. GASTROINTESTINAL: Denies abdominal pain or distention. Denies nausea, vomiting, or diarrhea. Denies blood in vomitus, stools, or per rectum. Denies black, tarry stools. Denies constipation. GENITOURINARY: Denies difficulty urinating, painful urination, frequency, blood in urine, testicular pain or penile discharge. MUSCULOSKELETAL: Denies back or neck pain or stiffness. Denies joint pain or swelling. SKIN: Denies rash, lesions or sores. HEMATOLOGIC : Denies easy bruising or bleeding. LYMPHATIC: Denies swollen glands. NEUROLOGICAL: Denies confusion or altered mental status. Denies loss of consciousness. Denies dizziness or lightheadedness. Denies headache. Denies weakness or paralysis. Denies problems difficulty with ambulation, slurred spe ech. Denies sensory loss, numbness, or tingling. Denies seizures. PSYCHIATRIC: Denies anxiety or stress. Denies depression, suicidal ideation, or Physical Exam - Vital signs Vitals: Resp Pulse Ox 33 H 100 07/15/18 18:12 07/15/18 18:12 - Notes Notes: PHYSICAL EXAMINATION: GENERAL: Well-appearing, well-nourished and in no acute distress. HEAD: Significant lip swelling EYES: Pupils equal round and reactive to light, extraocular movements intact, sclera anicteric, conjunctiva are normal. ENT: Nares patent, oropharynx clear without exudates. Moist mucous membranes. Right-sided tongue swelling. Uvula midline. No stridor NECK: Normal range of motion, supple without lymphadenopathy LUNGS: Breath sounds clear to auscultation bilaterally and equal. No wheezes rales or rhonchi. No increased work of breathing, accessory muscle use. HEART: Regular rate and rhythm without murmurs ABDOMEN: Soft, nontender, nondistended abdomen. No guarding, no rebound. No masses appreciated. Musculoskeletal: Normal range of motion, no pitting or edema. No cyanosis. NEUROLOGICAL: Cranial nerves grossly intact. Normal speech, normal gait. Normal sensory, motor exams PSYCH: Normal mood, normal affect. SKIN: Warm, Dry, normal turgor, no rashes or lesions noted. Course - Re-evaluation Re-evalutation: 07/15/18 21:34 Laboratory 07/15/18 07/15/18 07/15/18 18:23 18:23 18:32 WBC 5.9 RBC 3.22 L Hgb 8.1 L Hct 24.1 L MCV 75 L MCH 25.1 L MCHC 33.4 RDW 18.8 H Plt Count 215 Total Counted 100 Seg Neutrophils % Not Reportable Seg Neuts % (Manual) 50 Lymphocytes % Not Reportable Lymphocytes % (Manual) 27 Monocytes % Not Reportable Monocytes % (Manual) 23 H Eosinophils % Not Reportable Eosinophils % (Manual) 0 Basophils % Not Reportable Basophils % (Manual) 0 Absolute Neutrophils Not Reportable Abs Neuts (Manual) 3.0 Absolute Lymphocytes Not Reportable Abs Lymphs (Manual) 1.6 Absolute Monocytes Not Reportable Abs Monocytes (Manual) 1.4 Absolute Eosinophils Not Reportable Absolute Eos (Manual) 0.0 Absolute Basophils Not Reportable Abs Basophils (Manual) 0.0 Platelet Comment ADEQUATE Polychromasia SLIGHT Hypochromasia 1+ Anisocytosis 2+ Sodium 139.6 Potassium 4.2 Chloride 103 Carbon Dioxide 24 Anion Gap 13 BUN 17 Creatinine 0.99 Est GFR ( Amer) > 60 Est GFR (Non-Af Amer) > 60 Glucose 109 Calcium 9.3 Total Bilirubin 0.3 Direct Bilirubin 0.3 Neonat Total Bilirubin Not Reportable Neonat Direct Bilirubin Not Reportable Neonat Indirect Bili Not Reportable AST 43 ALT 32 Alkaline Phosphatase 63 Total Protein 6.8 Albumin 3.7 Blood Type O POSITIVE Temp Pulse Resp BP Pulse Ox 98.5 F 100 26 H 141/85 H 97 07/15/18 21:15 07/15/18 20:21 07/15/18 21:31 07/15/18 21:31 07/15/18 21:31 62-year-old male on lisinopril presents with significant lip and tongue swelling that occurred just prior to arrival. Vital signs reviewed upon arrival and within normal limits. Patient is no acute respiratory distress and does not complain of difficulty swallowing. Lung sounds are clear. Patient did receive epinephrine, Benadryl, Solu-Medrol, TXA and fresh frozen plasma. On reevaluation patient is resting comfortably, swelling has improved slightly but not enough for the patient to be discharged home. I did speak to Dr. Cobb on-call for Dr. Saldaña who has agreed to admit the patient to the [facility]. - Vital Signs Vital signs: Temp Pulse Resp BP Pulse Ox 98.5 F 100 25 H 138/85 H 97 07/15/18 21:15 07/15/18 20:21 07/15/18 21:16 07/15/18 21:16 07/15/18 21:16 - Laboratory Result Diagrams: 07/15/18 18:23 07/15/18 18:23 Laboratory results interpreted by me: 07/15/18 18:23 RBC 3.22 L Hgb 8.1 L Hct 24.1 L MCV 75 L MCH 25.1 L RDW 18.8 H Monocytes % (Manual) 23 H Discharge - Discharge Clinical Impression: Angioedema Qualifiers: Encounter type: initial encounter Qualified Code(s): T78.3XXA - Angioneurotic edema, initial encounter Anemia Qualifiers: Anemia type: unspecified type Qualified Code(s): D64.9 - Anemia, unspecified Condition: Serious Disposition: ADMITTED INPATIENT Admitting Provider: Reza Unit Admitted: [facility]
[2018-07-15 19:00] LABS: HEMATOCRIT 24.1 % (37.9-51.0); HEMOGLOBIN 8.1 g/dL (13.5-17.0); MEAN CORPUSCULAR HEMOGLOBIN 25.1 pg (27.0-33.4); MEAN CORPUSCULAR HGB CONC 33.4 g/dL (32.0-36.0); MEAN CORPUSCULAR VOLUME 75 fl (80-97); PLATELET COUNT 215 10^3/uL (150-450); RED BLOOD COUNT 3.22 10^6/uL (4.35-5.55); RED CELL DISTRIBUTION WIDTH 18.8 % (11.5-14.0); WHITE BLOOD COUNT 5.9 10^3/uL (4.0-10.5)
[2018-07-15 19:12] LABS: ALANINE AMINOTRANSFERASE 32 U/L (21-72); ALBUMIN 3.7 g/dL (3.5-5.0); ALKALINE PHOSPHATASE 63 U/L (38-126); ANION GAP 13 (5-19); ASPARTATE AMINO TRANSFERASE 43 U/L (17-59); BILIRUBIN,DIRECT 0.3 mg/dL (0.0-0.4); BILIRUBIN,TOTAL 0.3 mg/dL (0.2-1.3); BLOOD UREA NITROGEN 17 mg/dL (7-20); CALCIUM 9.3 mg/dL (8.4-10.2); CARBON DIOXIDE 24 mmol/L (22-30); CHLORIDE 103 mmol/L (98-107); GLUCOSE 109 mg/dL (75-110); POTASSIUM 4.2 mmol/L (3.6-5.0); SODIUM 139.6 mmol/L (137-145); TOTAL PROTEIN 6.8 g/dL (6.3-8.2)
[2018-07-15 19:25] LABS: ABSOLUTE LYMPHOCYTES# (MANUAL) 1.6 10^3/uL (0.5-4.7); ABSOLUTE MONOCYTES # (MANUAL) 1.4 10^3/uL (0.1-1.4); BASOPHILS % (MANUAL) 0 % (0-2); EOSINOPHILS % (MANUAL) 0 % (0-6); LYMPHOCYTES % (MANUAL) 27 % (13-45); MONOCYTES % (MANUAL) 23 % (3-13); PLATELET COMMENT ADEQUATE; SEGMENTED NEUTROPHILS % (MAN) 50 % (42-78); TOTAL CELLS COUNTED 100
[2018-07-15 19:28] LABS: ANISOCYTOSIS 2+; HYPOCHROMASIA 1+; POLYCHROMASIA SLIGHT
[2018-07-15] MEDS ORDERED: AMLODIPINE BESYLATE 5 MG TABLET PO ONE (23:00)
[2018-07-16] MEDS ORDERED: AMLODIPINE BESYLATE 5 MG TABLET PO SCH (10:00)
--- NOTE | 2018-07-16 13:09 | PDOC H&P ---
History of Present Illness Admission Date/PCP: 07/15/18 19:51 THERESA DUENAS MD Patient complains of: Facial swelling History of Present Illness: HELENA CARRILLO is a 62 year old male patient of Dr Duenas who presented to the ED with concern about sudden onset of facial swelling involving his lips and tongue. He denied any difficulty with breathing or associated chest pain, coughing or palpitation. While in the ED despite treatment with IV steroid and anti histamine he continue to experience worsening tongue and facial swelling so he was advised hospitalization for further evaluation and management. He denied similar episode in the past. No associated wheezing or shortness of breath. He reported starting Lisinopril for his blood pressure management about 2 months ago. His morbidities include hypertension, diet controlled Diabetes Mellitus typ e 2, and prostate cancer. Past Medical History Cardiac Medical History: Reports: Hypertension Endocrine Medical History: Reports: Diabetes Mellitus Type 2 - Diet-controlled Psychiatric Medical History: Denies: Depression Social History Lives with: Spouse/Significant other Smoking Status: Former Smoker Last Time Smoked: 35 years ago Frequency of Alcohol Use: None Hx Recreational Drug Use: No Drugs: None Hx Prescription Drug Abuse: No - Advance Directive Resuscitation Status: Full Code Family History Family History: Reviewed & Not Pertinent Parental Family History Reviewed: Yes Children Family History Reviewed: Yes Sibling(s) Family History Reviewed.: Yes Medication/Allergy Home Medications: Lisinopril [Prinivil] 10 mg PO DAILY #14 tablet 07/05/18 Allergies/Adverse Reactions: No Known Allergies Allergy (Verified 07/15/18 18:33) Review of Systems Constitutional: ABSENT: chills, fever(s), headache(s), weight gain, weight loss Eyes: PRESENT: visual disturbances Ears: PRESENT: hearing changes Nose, Mouth, and Throat: ABSENT: as per HPI, headache(s), mouth pain, sore throat, vertigo, other Cardiovascular: ABSENT: chest pain, dyspnea on exertion, edema, orthropnea, palpitations Respiratory: ABSENT: cough, hemoptysis Gastrointestinal: ABSENT: abdominal pain, constipation, diarrhea, hematemesis, hematochezia, nausea, vomiting Genitourinary: ABSENT: dysuria, hematuria Musculoskeletal: ABSENT: joint swelling Integumentary: ABSENT: rash, wounds Neurological: ABSENT: abnormal gait, abnormal speech, confusion, dizziness, focal weakness, syncope Psychiatric: ABSENT: anxiety, depression, homidical ideation, suicidal ideation Endocrine: ABSENT: cold intolerance, heat intolerance, polydipsia, polyuria Hematologic/Lymphatic: ABSENT: easy bleeding, easy bruising, lymphadenopathy Allergic/Immunologic: ABSENT: seasonal rhinorrhea Physical Exam Vital Signs: Temp Pulse Resp BP Pulse Ox 98.1 F 89 20 143/79 H 100 07/16/18 11:41 07/16/18 11:41 07/16/18 11:41 07/16/18 11:41 07/16/18 11:41 Intake & Output 07/15/18 07/16/18 07/17/18 06:59 06:59 06:59 Intake Total 926 Output Total 600 Balance 326 Weight 95.5 kg General appearance: PRESENT: no acute distress, well-developed, well-nourished Eye exam: PRESENT: conjunctiva pink, EOMI, PERRLA. ABSENT: scleral icterus Ear exam: PRESENT: normal external ear exam Mouth exam: PRESENT: moist, tongue midline - with solved swelling at the time of my evaluation Neck exam: PRESENT: full ROM. ABSENT: carotid bruit, JVD, lymphadenopathy, thyromegaly Respiratory exam: PRESENT: clear to auscultation anyi Cardiovascular exam: PRESENT: RRR. ABSENT: diastolic murmur, rubs, systolic murmur Vascular exam: ABSENT: pallor GI/Abdominal exam: PRESENT: normal bowel sounds, soft. ABSENT: distended, guarding, mass, organolmegaly, rebound, tenderness Rectal exam: PRESENT: deferred Extremities exam: ABSENT: pedal edema Musculoskeletal exam: PRESENT: normal inspection. ABSENT: tenderness Neurological exam: PRESENT: alert, awake, oriented to person, oriented to place, oriented to time, oriented to situation, CN II-XII grossly intact. ABSENT: motor sensory deficit Psychiatric exam: PRESENT: appropriate affect, normal mood. ABSENT: homicidal ideation, suicidal ideation Skin exam: PRESENT: dry, warm Results Laboratory Results: 07/15/18 18:23 07/15/18 18:23 07/15/18 07/15/18 07/15/18 18:23 18:23 18:32 WBC 5.9 RBC 3.22 L Hgb 8.1 L Hct 24.1 L MCV 75 L MCH 25.1 L MCHC 33.4 RDW 18.8 H Plt Count 215 Seg Neutrophils % Not Reportable Lymphocytes % Not Reportable Monocytes % Not Reportable Eosinophils % Not Reportable Basophils % Not Reportable Absolute Neutrophils Not Reportable Absolute Lymphocytes Not Reportable Absolute Monocytes Not Reportable Absolute Eosinophils Not Reportable Absolute Basophils Not Reportable Sodium 139.6 Potassium 4.2 Chloride 103 Carbon Dioxide 24 Anion Gap 13 BUN 17 Creatinine 0.99 Est GFR ( Amer) > 60 Est GFR (Non-Af Amer) > 60 Glucose 109 Calcium 9.3 Total Bilirubin 0.3 AST 43 ALT 32 Alkaline Phosphatase 63 Total Protein 6.8 Albumin 3.7 Blood Type O POSITIVE Assessment & Plan - Diagnosis (1) Angioedema Qualifiers: Encounter type: initial encounter Qualified Code(s): T78.3XXA - Angioneurotic edema, initial encounter Is this a current diagnosis for this admission?: Yes Plan: Continue supportive care and maintain on H2 mikayla. (2) Essential hypertension Is this a current diagnosis for this admission?: Yes Plan: Maintain on Amlodipine 5 mg p.o bid for sbp < 140mmHg. (3) Diabetes mellitus Qualifiers: Diabetes mellitus type: type 2 Diabetes mellitus intermediate manager insulin use: without intermediate manager use Is this a current diagnosis for this admission?: Yes Plan: Maintain on diabetic diet level 4. Encouraged regular physical activities to keep weight under control. (4) Microcytic anemia Is this a current diagnosis for this admission?: Yes Plan: Obtain anemia workup. Repeat CBC in AM. - Time Time Spent: 50 to 70 Minutes Medications reviewed and adjusted accordingly: Yes Anticipated discharge: Home Within: Other - Inpatient Certification Based on my medical assessment, after consideration of the patient's com orbidities, presenting symptoms, or acuity I expect that the services needed warrant INPATIENT care.: No I certify that my determination is in accordance with my understanding of Medicare's requirements for reasonable and necessary INPATIENT services [42 CFR 412.3e].: No Post Hospital Care: D/C [facility] Documentation - Plan Summary Plan Summary: See covering admitting physician orders for care plan details.
[2018-07-16] MEDS ORDERED: DEXTROSE 50%-WATER 25 GM/50 ML DISP.SYRIN IV PRN ×2 (13:12)
[2018-07-16] MEDS ORDERED: DEXTROSE 40% GEL 15 GM TUBE PO PRN ×2 (13:12)
[2018-07-16] MEDS ORDERED: GLUCAGON,HUMAN RECOMB 1 MG INJ IM PRN (13:12)
[2018-07-16] MEDS: FAMOTIDINE 20 MG TABLET PO SCH ×2 (15:26→21:35)
[2018-07-16] MEDS: INSULIN LISPRO 100 UNIT/ML 3 ML VIAL SUBCUT SCH ×2 (17:40→21:24)
[2018-07-16] MEDS: AMLODIPINE BESYLATE 5 MG TABLET PO SCH (21:35)
[2018-07-17] MEDS: INSULIN LISPRO 100 UNIT/ML 3 ML VIAL SUBCUT SCH ×2 (09:04→13:14)
[2018-07-17] MEDS: FAMOTIDINE 20 MG TABLET PO SCH (09:06)
[2018-07-17] MEDS: AMLODIPINE BESYLATE 5 MG TABLET PO SCH (09:06)
--- NOTE | 2018-07-17 15:43 | PDOC DISCHARGE SUMMARY ---
General - Admit/Disc Date/PCP Admission Date/Primary Care Provider: 07/15/18 19:51 THERESA DUENAS MD Discharge Date: 07/17/18 - Discharge Diagnosis (1) Angioedema Is this a current diagnosis for this admission?: Yes (2) Essential hypertension Is this a current diagnosis for this admission?: Yes (3) Diabetes mellitus Is this a current diagnosis for this admission?: Yes (4) Microcytic anemia Is this a current diagnosis for this admission?: Yes - Additional Information Resuscitation Status: Full Code Discharge Diet: Cardiac Discharge Activity: Activity As Tolerated Home Medications: Lisinopril [Prinivil] 10 mg PO DAILY #14 tablet 07/05/18 History of Present Illness Patient complains of: Facial swelling History of Present Illness: HELENA CARRILLO is a 62 year old male patient of Dr Duenas who presented to the ED with concern about sudden onset of facial swelling involving his lips and tongue. He denied any difficulty with breathing or associated chest pain, coughing or palpitation. While in the ED despite treatment with IV steroid and anti histamine he continue to experience worsening tongue and facial swelling so he was advised hospitalization for further evaluation and management. He denied similar episode in the past. No associated wheezing or shortness of breath. He reported starting Lisinopril for his blood pressure management about 2 months ago. His morbidities include hypertension, diet controlled Diabetes Mellitus type 2, and prostate cancer. Hospital Course Hospital Course: Patient was admitted for angioedema involving his lips and tongue due to recent use of Lisinopril. He was managed with anti histamine, IV steroid, epinephrine, and PPI as well as FFP. He subsequently improved with resolution of his swelling. His blood pressure was managed with Amlodipine and he will be discharged home on Amlodipine 10 mg p.o daily. He will follow up with Dr Duenas as instructed upon discharge. Physical Exam Vital Signs: Temp Pulse Resp BP Pulse Ox 98.1 F 88 16 117/48 L 100 07/17/18 11:43 07/17/18 11:43 07/17/18 11:43 07/17/18 11:43 07/17/18 11:43 Intake & Output 07/16/18 07/17/18 07/18/18 06:59 06:59 06:59 Intake Total 926 2669 Output Total 600 Balance 326 2669 Weight 95.5 kg 92.2 kg General appearance: PRESENT: no acute distress Head exam: PRESENT: atraumatic, normocephalic Eye exam: PRESENT: conjunctiva pink, EOMI, PERRLA. ABSENT: scleral icterus Ear exam: PRESENT: normal external ear exam Mouth exam: PRESENT: moist Respiratory exam: PRESENT: clear to auscultation anyi Cardiovascular exam: PRESENT: RRR. ABSENT: diastolic murmur, rubs, systolic murmur Vascular exam: PRESENT: normal capillary refill. ABSENT: pallor GI/Abdominal exam: PRESENT: normal bowel sounds, soft. ABSENT: distended, guarding, mass, organolmegaly, rebound, tenderness Extremities exam: ABSENT: pedal edema Musculoskeletal exam: PRESENT: normal inspection Neurological exam: PRESENT: alert, awake, oriented to person, oriented to place, oriented to time, oriented to situation, CN II-XII grossly intact. ABSENT: mot or sensory deficit Psychiatric exam: PRESENT: appropriate affect, normal mood. ABSENT: homicidal ideation, suicidal ideation Skin exam: PRESENT: dry, warm Results Laboratory Results: 07/15/18 18:23 07/15/18 18:23 Qualifiers - * PATIENT BEING DISCHARGED WITH ANY OF THE FOLLOWING DIAGNOSIS: No Plan Discharge Plan: D/C home today and follow up with Dr. Duenas as instructed upon discharge.
[2018-07-17 17:21] VITALS: BP 164/87
[2018-07-17] MEDS ORDERED: AMLODIPINE BESYLATE 5 MG TABLET PO SCH (17:30)
== END 2018-07-17 17:40 | disposition home or self-care (01) ==
LOC: ER 18:09 → EH 19:51 → INTOOBSV 19:51 → 3N 21:58
PROVIDERS: ADMIT Internal Medicine; ATTEND Internal Medicine Geriatric Medicine
DX: T78.3XXA Angioneurotic edema, initial encounter (principal); T46.4X5A Adverse effect of angiotensin-converting-enzyme inhibitors, initial encounter; I10 Essential (primary) hypertension; E11.9 Type 2 diabetes mellitus without complications; D64.9 Anemia, unspecified; Z79.899 Other long term (current) drug therapy; C61 Malignant neoplasm of prostate; Z87.891 Personal history of nicotine dependence
CPT/HCPCS: 99284; 96372; 96374; 96375; 86900; 86901; 36415; 36430; 82962 ×2; 85025; 80053; G0378 ×3; P9017; A9270 ×5; J1200; J0171; J2930; S0028; J3490

== ENCOUNTER → 2018-08-17 | Outpatient (CLI) | payer MEDICARE ==
--- NOTE | 2018-08-17 15:06 | RADIOLOGY REPORT (SQ) ---
EXAM DESCRIPTION: CT ORBIT/SELLA COMBO COMPLETED DATE/TIME: 08/17/2018 2:54 pm REASON FOR STUDY: R04.0 EPISTAXIS R04.0 EPISTAXIS COMPARISON: None. TECHNIQUE: Pre contrast and post contrast images through the orbits windowed for bone and soft tissu e. Additional coronal and sagittal reconstructed images reviewed. All images stored on PACS. All CT scanners at this facility use dose modulation, iterative reconstruction, and/or weight based d osing when appropriate to reduce radiation dose to as low as reasonably achievable (ALARA). [facility]: Dose Right [facility]: CareDose [facility]: Dose Right [facility]: Teradose 4D [facility]: TeamPages CONTRAST TYPE AND DOSE: contrast/concentration: Isovue 350.00 mg/ml; Total Contrast Delivered: 50.0 ml; Total Saline Delivered: 43.0 ml RENAL FUNCTION: Creatinine 0.8 RADIATION DOSE: . LIMITATIONS: None. FINDINGS: FACIAL BONES: No fracture or bone lesion. ORBITS: Intact. No fracture. Symmetric intact globes and retroorbital soft tissues. PARANASAL SINUSES: Mild ethmoid and frontal sinusitis. No masses. There is a retention cyst or poly p in the left maxillary sinus. SOFT TISSUES: No mass or edema. No abnormal enhancement. No CT evidence of acute sinusitis. INFERIOR BRAIN: Limited view. No acute findings. OTHER: No other significant finding. IMPRESSION: Mild ethmoid, frontal and left maxillary sinusitis. No other significant findings. No masses to explain the epistaxis. TECHNICAL DOCUMENTATION: JOB ID: [id number] Quality ID # [id number]: Final reports with documentation of one or more dose reduction techniques (e.g., Au tomated exposure control, adjustment of the mA and/or kV according to patient size, use of iterative reconstruction technique) 2010 [email or web address]- All Rights Reserved Reading location - IP/workstation name: [email or web address]
== END ==
LOC: RAD 14:22
PROVIDERS: ATTEND Otolaryngology
DX: R04.0 Epistaxis (principal)
CPT/HCPCS: 70482; 82565

== ENCOUNTER → 2018-12-15 | Outpatient (CLI) | payer MEDICARE ==
[2018-12-15 18:11] LABS: HEMATOCRIT 31.4 % (37.9-51.0); HEMOGLOBIN 10.1 g/dL (13.5-17.0); MEAN CORPUSCULAR HEMOGLOBIN 23.6 pg (27.0-33.4); MEAN CORPUSCULAR HGB CONC 32.3 g/dL (32.0-36.0); MEAN CORPUSCULAR VOLUME 73 fl (80-97); PLATELET COUNT 130 10^3/uL (150-450); RED CELL DISTRIBUTION WIDTH 23.6 % (11.5-14.0); WHITE BLOOD COUNT 3.5 10^3/uL (4.0-10.5)
[2018-12-15 18:26] LABS: ABSOLUTE LYMPHOCYTES# (MANUAL) 1.8 10^3/uL (0.5-4.7); ABSOLUTE MONOCYTES # (MANUAL) 0.6 10^3/uL (0.1-1.4); BASOPHILS % (MANUAL) 3 % (0-2); EOSINOPHILS % (MANUAL) 0 % (0-6); LYMPHOCYTES % (MANUAL) 47 % (13-45); MONOCYTES % (MANUAL) 17 % (3-13); SEGMENTED NEUTROPHILS % (MAN) 30 % (42-78); TOTAL CELLS COUNTED 100
[2018-12-15 18:27] LABS: ANISOCYTOSIS 3+; HYPOCHROMASIA 1+; PLATELET COMMENT DECREASED; PLATELET LARGE PRESENT; POLYCHROMASIA SLIGHT
[2018-12-15 18:35] LABS: FREE T4 (FREE THYROXINE) 0.72 ng/dL (0.78-2.19)
[2018-12-15 18:45] LABS: ALBUMIN 4.3 g/dL (3.5-5.0); ALKALINE PHOSPHATASE 105 U/L (38-126); ANION GAP 10 (5-19); ASPARTATE AMINO TRANSFERASE 46 U/L (17-59); BILIRUBIN,DIRECT 0.2 mg/dL (0.0-0.4); BILIRUBIN,TOTAL 0.4 mg/dL (0.2-1.3); BLOOD UREA NITROGEN 10 mg/dL (7-20); CALCIUM 9.5 mg/dL (8.4-10.2); CARBON DIOXIDE 26 mmol/L (22-30); CHLORIDE 105 mmol/L (98-107); GLUCOSE 120 mg/dL (75-110); IRON(TIBC) 83.1 ug/dL (49-181); POTASSIUM 3.9 mmol/L (3.6-5.0); TOTAL PROTEIN 7.1 g/dL (6.3-8.2)
[2018-12-15 18:49] LABS: THYROID STIMULATING HORMONE 0.91 uIU/mL (0.47-4.68)
== END ==
LOC: LAB 17:50
PROVIDERS: ATTEND Internal Medicine
DX: D50.9 Iron deficiency anemia, unspecified (principal); I10 Essential (primary) hypertension
CPT/HCPCS: 36415; 80053; 82728; 83540; 83550; 84439; 84443; 85025

== ENCOUNTER 2019-04-23 16:28 | Emergency (ER) | payer MEDICARE ==
--- NOTE | 2019-04-23 18:13 | ER Document Report ---
ED Medical Screen (RME) - General Chief Complaint: Flank Pain Stated Complaint: RIGHT FLANK PAIN Time Seen by Provider: 04/23/19 17:52 Primary Care Provider: THERESA DUENAS MD [Primary Care Provider] - Follow up as needed TRAVEL OUTSIDE OF THE [place] IN LAST 30 DAYS: No - HPI Notes: 04/23/19 18:12 63-year-old male to the emergency department with complaints of right flank pain is been ongoing for the past month. It seems to get worse when he bends forward and also when he lays on his left side but not particularly when he is twisting or activating the back muscles. He admits to sometimes the pain being so severe that it takes his breath away. Sometimes it radiates around to the front. Denies any fevers or chills or blood in his urine. He is never had a kidney s tone. Denies any falls or any other blunt trauma. He does have a history of prostate cancer. I performed a brief medical screening exam on the patient and determined he will need further evaluation and management by main side provider. I placed initial orders to help expedite his care this evening. Patient agrees with the plan. - Related Data Allergies/Adverse Reactions: No Known Allergies Allergy (Verified 07/15/18 18:33) Home Medications: Amlodipine 100 mg daily Past Medical History - Past Medical History Cardiac Medical History: Reports: Hx Hypertension Endocrine Medical History: Reports: Hx Diabetes Mellitus Type 2 - Diet- controlled Renal/ Medical History: Denies: Hx Peritoneal Dialysis Malignancy Medical History: Reports Hx Prostate Cancer Psychiatric Medical History: Denies: Hx Depression Physical Exam - Vital signs Vitals: Temp Pulse Resp Pulse Ox 98 F 85 16 100 04/23/19 17:02 04/23/19 17:02 04/23/19 17:02 04/23/19 17:02 Course - Vital Signs Vital signs: Temp Pulse Resp BP Pulse Ox 98 F 85 16 100 04/23/19 17:02 04/23/19 17:02 04/23/19 17:02 04/23/19 17:02 Doctor's Discharge - Discharge Referrals: THERESA DUENAS MD [Primary Care Provider] - Follow up as needed
[2019-04-23 19:26] LABS: HEMATOCRIT 34.2 % (37.9-51.0); HEMOGLOBIN 11.9 g/dL (13.5-17.0); MEAN CORPUSCULAR HEMOGLOBIN 26.2 pg (27.0-33.4); MEAN CORPUSCULAR HGB CONC 34.8 g/dL (32.0-36.0); MEAN CORPUSCULAR VOLUME 75 fl (80-97); PLATELET COUNT 146 10^3/uL (150-450); RED BLOOD COUNT 4.53 10^6/uL (4.35-5.55); RED CELL DISTRIBUTION WIDTH 20.4 % (11.5-14.0)
[2019-04-23 19:41] LABS: APPEARANCE,URINE CLEAR; BILIRUBIN,URINE NEGATIVE (NEGATIVE); COLOR,URINE YELLOW; GLUCOSE, URINE NEGATIVE (NEGATIVE); KETONES,URINE NEGATIVE (NEGATIVE); LEUKOCYTE ESTERASE,URINE NEGATIVE (NEGATIVE); NITRITE,URINE NEGATIVE (NEGATIVE); PROTEIN,URINE 100 mg/dL (NEGATIVE); URINE SPECIFIC GRAVITY 1.011; UROBILINOGEN,URINE NEGATIVE mg/dL (<2.0)
[2019-04-23 19:47] LABS: ALBUMIN 4.2 g/dL (3.5-5.0); ALKALINE PHOSPHATASE 83 U/L (38-126); ANION GAP 12 (5-19); ASPARTATE AMINO TRANSFERASE 39 U/L (17-59); BILIRUBIN,DIRECT 0.1 mg/dL (0.0-0.4); BILIRUBIN,TOTAL 0.4 mg/dL (0.2-1.3); BLOOD UREA NITROGEN 13 mg/dL (7-20); CALCIUM 9.5 mg/dL (8.4-10.2); CARBON DIOXIDE 26 mmol/L (22-30); CHLORIDE 104 mmol/L (98-107); GLUCOSE 83 mg/dL (75-110); POTASSIUM 4.3 mmol/L (3.6-5.0); TOTAL PROTEIN 7.5 g/dL (6.3-8.2)
[2019-04-23 19:51] LABS: BAND NEUTROPHILS % (MANUAL) 3 % (3-5); BASOPHILS % (MANUAL) 1 % (0-2); EOSINOPHILS % (MANUAL) 1 % (0-6); LYMPHOCYTES % (MANUAL) 21 % (13-45); SEGMENTED NEUTROPHILS % (MAN) 48 % (42-78); TOTAL CELLS COUNTED 100
--- NOTE | 2019-04-23 19:51 | RADIOLOGY REPORT (SQ) ---
EXAM DESCRIPTION: CT ABD/PELVIS NO ORAL OR IV COMPLETED DATE/TIME: 04/23/2019 7:27 pm REASON FOR STUDY: flank pain COMPARISON: None. TECHNIQUE: CT scan of the abdomen and pelvis performed without intravenous or oral contrast. Images reviewed with lung, soft tissue, and bone windows. Reconstructed coronal and sagittal MPR images revi ewed. All images stored on PACS. All CT scanners at this facility use dose modulation, iterative reconstruction, and/or weight based d osing when appropriate to reduce radiation dose to as low as reasonably achievable (ALARA). [facility]: Dose Right [facility]: CareDose [facility]: Dose Right [facility]: Teradose 4D [facility]: Smart [employer] RADIATION DOSE: CT Rad equipment meets quality standard of care and radiation dose reduction techniq ues were employed. CTDIvol: 11.7 mGy. DLP: 584 mGy-cm.mGy. LIMITATIONS: None. FINDINGS: LOWER CHEST: No significant findings. No nodules or infiltrates. NON-CONTRASTED LIVER, SPLEEN, ADRENALS: Evaluation limited by lack of IV contrast. Hepatomegaly. No identified significant masses. PANCREAS: No masses. No peripancreatic inflammatory changes. GALLBLADDER: No identified stones by CT criteria. No inflammatory changes to suggest cholecystitis. RIGHT KIDNEY AND URETER: No suspicious masses. Assessment limited by lack of IV contrast. No signif icant calcifications. No hydronephrosis or hydroureter. LEFT KIDNEY AND URETER: No suspicious masses. Assessment limited by lack of IV contrast. No signifi cant calcifications. No hydronephrosis or hydroureter. AORTA AND RETROPERITONEUM: No aneurysm. No retroperitoneal masses or adenopathy. BOWEL AND PERITONEAL CAVITY: Mild scattered colonic diverticula. No obvious masses or inflammatory c hanges. No free fluid. APPENDIX: Normal. PELVIS, BLADDER, AND ABDOMINAL WALL:No abnormal masses. No free fluid. Incompletely distended bladde r. Diffuse bladder wall thickening measuring 8 mm. No pericystic inflammatory stranding. Suspected postsurgical changes of prostatectomy. Small fat containing left inguinal hernia. BONES: No acute findings. Degenerative changes of the thoracolumbar spine, bilateral hips and sacroi liac joints. OTHER: No other significant finding. IMPRESSION: No urolithiasis. Mild diffuse urinary bladder wall thickening without surrounding infla mmatory stranding, likely attributed to incomplete distention, although acute cystitis cannot fully b e excluded. Mild scattered colonic diverticulosis without evidence of acute diverticulitis. Hepatomegaly. COMMENT: Quality ID # [id number]: Final reports with documentation of one or more dose reduction techniques (e.g., Automated exposure control, adjustment of the mA and/or kV according to patient size, use of iterative reconstruction technique) TECHNICAL DOCUMENTATION: JOB ID: [id number] [employer]- All Rights Reserved Reading location - IP/workstation name: [email or web address]
[2019-04-23 19:52] LABS: ANISOCYTOSIS 2+; BURR CELLS 1+; HYPOCHROMASIA 1+; PLATELET COMMENT ADEQUATE; POLYCHROMASIA 1+
[2019-04-23] MEDS ORDERED: CYCLOBENZAPRINE HCL 10 MG TABLET PO ONE (22:15)
--- NOTE | 2019-04-23 22:21 | ER Document Report ---
ED General - General Chief Complaint: Flank Pain Stated Complaint: RIGHT FLANK PAIN Time Seen by Provider: 04/23/19 17:52 Primary Care Provider: THERESA DUENAS MD [Primary Care Provider] - Follow up as needed TRAVEL OUTSIDE OF THE [place] IN LAST 30 DAYS: No - HPI Notes: Patient is a 63-year-old gentleman with a history of hypertension, prostate cancer, who presents to the emergency department for evaluation of right flank pain. Is been ongoing for the last several weeks, but worsened over the last several days. He describes it as a constant pain. Is worsened by movement. It seems to be worse when he tries to get out of the bed in the morning. He states sometimes is worse with deep breathing. He denies any fevers or chills. No nausea or vomiting. No urinary symptoms. Normal bowel movements. - Related Data Allergies/Adverse Reactions: No Known Allergies Allergy (Verified 07/15/18 18:33) Home Medications: Amlodipine 10 mg daily Past Medical History - General Information source: Patient - Social History Smoking Status: Former Smoker Family History: Reviewed & Not Pertinent Patient has suicidal ideation: No Patient has homicidal ideation: No - Past Medical History Cardiac Medical History: Reports: Hx Hypertension Endocrine Medical History: Reports: Hx Diabetes Mellitus Type 2 - Diet- controlled Renal/ Medical History: Denies: Hx Peritoneal Dialysis Malignancy Medical History: Reports Hx Prostate Cancer Psychiatric Medical History: Denies: Hx Depression Review of Systems - Review of Systems Constitutional: No symptoms reported EENT: No symptoms reported Cardiovascular: No symptoms reported Gastrointestinal: No symptoms reported Genitourinary: See HPI Musculoskeletal: See HPI Skin: No symptoms reported Neurological/Psychological: No symptoms reported Physical Exam - Vital signs Vitals: Temp Pulse Resp Pulse Ox 98 F 85 16 100 04/23/19 17:02 04/23/19 17:02 04/23/19 17:02 04/23/19 17:02 - Notes Notes: Vital signs reviewed, please refer to chart. Head is normocephalic, atraumatic. Pupils equal round, reactive to light. Neck is supple without meningismus. Heart is regular rate and rhythm. Lungs are clear to auscultation bilaterally. Abdomen is soft, nontender, normoactive bowel sounds throughout. No CVA tenderness. Examination of the spine yields no midline tenderness step-off. He has paraspinal musculature tenderness noted from approximately T10 down through L4-5. Negative straight leg raise bilaterally. Strength is +5/5 bilateral lower extremities. Patellar and Achilles reflexes are diminished but equal, sensation is intact. Extremities without cyanosis, clubbing. Posterior calves are nontender. Peripheral pulses are equal. Skin is warm and dry. Patient is awake, alert, neurological exam is nonfocal. Course - Re-evaluation Re-evalutation: 04/23/19 22:18 Patient presents emergency department for evaluation. Laboratory investigations and imaging were obtained as ordered through triage. Patient's urinalysis did reveal some blood. The patient is a former smoker. The urine was sent for culture, but he does not have any significant urinary symptoms. I explained to the patient that he should have this followed up, make sure that the blood in his urine resolves. His CT scan had some findings concerning for cystitis, but again in the absence of any urinary symptoms, this is not high my differential. Microscopic hematuria in a former smoker can be indicative of something more serious and he voiced understanding. Otherwise, I strongly suspect that his pain is musculoskeletal in nature. At this time I will medicate him with Flexeril. He is given a prescription for same. He is warned that this medication may cause dizziness and drowsiness. He voiced understanding. Otherwise he is to follow-up with his primary care provider, return to the ED with worsening or new concerning symptoms of any sort. - Vital Signs Vital signs: Temp Pulse Resp BP Pulse Ox 98.1 F 80 20 146/81 H 95 04/23/19 19:48 04/23/19 19:48 04/23/19 19:48 04/23/19 19:48 04/23/19 19:48 - Laboratory Result Diagrams: 04/23/19 19:10 04/23/19 19:10 Laboratory results interpreted by me: 04/23/19 04/23/19 19:10 19:10 Hgb 11.9 L Hct 34.2 L MCV 75 L MCH 26.2 L RDW 20.4 H Plt Count 146 L Monocytes % (Manual) 26 H Abs Monocytes (Manual) 1.6 H Urine Protein 100 H Urine Blood MODERATE H - Diagnostic Test Radiology reviewed: Reports reviewed Radiology results interpreted by me: 04/23/19 22:19 Abdomen/Pelvis CT 04/23/19 18:10 IMPRESSION: No urolithiasis. Mild diffuse urinary bladder wall thickening without surrounding inflammatory stranding, likely attributed to incomplete distention, although acute cystitis cannot fully be excluded. Mild scattered colonic diverticulosis without evidence of acute diverticulitis. Hepatomegaly. Discharge - Discharge Clinical Impression: Right flank pain Low back pain Qualifiers: Chronicity: acute Back pain laterality: right Sciatica presence: without sciatica Qualified Code(s): M54.5 - Low back pain Condition: Stable Disposition: HOME, SELF-CARE Instructions: Flank Pain ([facility]), Low Back Pain ([facility]) Additional Instructions: Moist heat to the painful area. Please take Flexeril as directed, watching for dizziness and drowsiness with this medication. Follow-up with your primary care provider. There is also a small amount of blood in your urine. This should be checked for clearing. If it does not clear, further investigations should be made. If you develop worsening or new concerning symptoms of any sort, please return immediately to the emergency department for evaluation. Referrals: THERESA DUENAS MD [Primary Care Provider] - Follow up as needed
[2019-04-23 22:35] VITALS: BP 139/81
[2019-04-26 12:56] LABS: MONOCYTES % (MANUAL) 10 % (3-13)
[2019-04-26 12:57] LABS: ABSOLUTE MONOCYTES # (MANUAL) 0.6 10^3/uL (0.1-1.4); PATH REVIEW PATHOLOGIST REVIEWED
[2019-04-26 12:58] LABS: ABSOLUTE LYMPHOCYTES# (MANUAL) 2.2 10^3/uL (0.5-4.7)
== END 2019-04-23 22:34 | disposition home or self-care (01) ==
LOC: ER 16:28
DX: R10.9 Unspecified abdominal pain (principal); M54.5 Low back pain; K57.30 Diverticulosis of large intestine without perforation or abscess without bleeding; R31.9 Hematuria, unspecified; I10 Essential (primary) hypertension; Z79.899 Other long term (current) drug therapy; Z85.46 Personal history of malignant neoplasm of prostate; Z87.891 Personal history of nicotine dependence; E11.9 Type 2 diabetes mellitus without complications
CPT/HCPCS: 99284; 36415; 87086; 83690; 85025; 80053; 81001; 74176; A9270

== ENCOUNTER → 2019-05-12 | Outpatient (CLI) | payer MEDICARE ==
--- NOTE | 2019-05-12 16:53 | RADIOLOGY REPORT (SQ) ---
EXAM DESCRIPTION: CT ABD/PELVIS WITH IV ONLY COMPLETED DATE/TIME: 05/12/2019 4:10 pm REASON FOR STUDY: R31.29 OTHER MICROSCOPIC HEMATURIA R31.29 OTHER MICROSCOPIC HEMATURIA COMPARISON: None. TECHNIQUE: CT scan of the abdomen and pelvis performed using helical scanning technique with dynamic intravenous contrast injection. No oral contrast. Images reviewed with lung, soft tissue, and bone windows. Reconstructed coronal and sagittal MPR images reviewed. Delayed images for evaluation of the urinary system also acquired. All images stored on PACS. All CT scanners at this facility use dose modulation, iterative reconstruction, and/or weight based d osing when appropriate to reduce radiation dose to as low as reasonably achievable (ALARA). [facility]: Dose Right [facility]: CareDose [facility]: Dose Right [facility]: Teradose 4D [facility]: [employer] CONTRAST TYPE AND DOSE: contrast/concentration: Isovue 350.00 mg/ml; Total Contrast Delivered: 99.0 ml; Total Saline Delivered: 66.0 ml 99 mL Isovue 350- low osmolar. RENAL FUNCTION: BUN 13, creatinine 1.1 RADIATION DOSE: CT Rad equipment meets quality standard of care and radiation dose reduction techniq ues were employed. CTDIvol: 8.0 mGy. DLP: 849 mGy-cm.. LIMITATIONS: None. FINDINGS: LOWER CHEST: No significant findings. No nodules or infiltrates. LIVER: Hepatomegaly. No masses. No dilated ducts. SPLEEN: Normal size. No focal lesions. PANCREAS: No masses. No significant calcifications. No adjacent inflammation or peripancreatic fluid collections. Pancreatic duct not dilated. GALLBLADDER: No identified stones by CT criteria. No inflammatory changes to suggest cholecystitis. ADRENAL GLANDS: No significant masses or asymmetry. RIGHT KIDNEY AND URETER: No solid masses. 1 cm inferior pole simple cyst. Subcentimeter hypodense f ocus within the superior pole, which is too small to fully characterize, although statistically likel y represents a cyst. No significant calcifications. No hydronephrosis or hydroureter. LEFT KIDNEY AND URETER: No solid masses. No significant calcifications. No hydronephrosis or hydr oureter. Incomplete contrast opacification of the proximal ureter, likely related to peristalsis as contrast is visualized within the distal ureter. AORTA AND VESSELS: No aneurysm. No dissection. Renal arteries, SMA, celiac without stenosis. RETROPERITONEUM: No retroperitoneal adenopathy, hemorrhage or masses. BOWEL AND PERITONEAL CAVITY: Mild scattered colonic diverticula. No masses or inflammatory changes. No free fluid or peritoneal masses. APPENDIX: Normal. PELVIS: No mass. No free fluid. Partially contrast filled urinary bladder appears unremarkable. No bladder wall thickening. ABDOMINAL WALL: No masses. Small left fat containing inguinal hernia. BONES: No acute findings. OTHER: No other significant finding. IMPRESSION: No identifiable findings to account for microhematuria. TECHNICAL DOCUMENTATION: JOB ID: [id number] Quality ID # [id number]: Final reports with documentation of one or more dose reduction techniques (e.g., Au tomated exposure control, adjustment of the mA and/or kV according to patient size, use of iterative reconstruction technique) 2010 [employer]- All Rights Reserved Reading location - IP/workstation name: [email or web address]
== END ==
LOC: RAD 14:41
PROVIDERS: ATTEND Internal Medicine
DX: R31.29 Other microscopic hematuria (principal)
CPT/HCPCS: 74177

== ENCOUNTER 2020-01-30 09:04 | Emergency (ER) | payer OTHER, MEDICARE ==
--- NOTE | 2020-01-30 10:12 | ER Document Report ---
ED Medical Screen (RME) - General Chief Complaint: Leg Pain Stated Complaint: LEFT PAIN Time Seen by Provider: 01/30/20 10:09 Primary Care Provider: THERESA DUENAS MD [Primary Care Provider] - Follow up as needed Mode of Arrival: Wheelchair Information source: Patient Notes: 64-year-old male presents to ED for pain to the back of the left calf. He states he was jumping a ditch 30 6:00 last night and it felt like something hit him in the back of the leg. His calf muscle is hard firm warm. He states his pain is about a 5 out of 5. States only past medical history he has is eye surgery and removal of prostate for prostate cancer does not smoke drink or use any drugs. [employer] TRAVEL OUTSIDE OF THE [place] IN LAST 30 DAYS: No - Related Data Allergies/Adverse Reactions: No Known Allergies Allergy (Verified 01/30/20 10:02) Past Medical History - Past Medical History Cardiac Medical History: Reports: Hx Hypertension Endocrine Medical History: Reports: Hx Diabetes Mellitus Type 2 - Diet-con trolled Renal/ Medical History: Denies: Hx Peritoneal Dialysis Malignancy Medical History: Reports Hx Prostate Cancer Psychiatric Medical History: Denies: Hx Depression Physical Exam - Vital signs Vitals: Temp Pulse Resp BP Pulse Ox 97.6 F 88 18 187/100 H 96 01/30/20 09:25 01/30/20 09:25 01/30/20 09:25 01/30/20 09:25 01/30/20 09:25 Course - Vital Signs Vital signs: Temp Pulse Resp BP Pulse Ox 97.6 F 88 18 187/100 H 96 01/30/20 09:25 01/30/20 09:25 01/30/20 09:25 01/30/20 09:25 01/30/20 09:25 Doctor's Discharge - Discharge Referrals: THERESA DUENAS MD [Primary Care Provider] - Follow up as needed
[2020-01-30 10:41] LABS: HEMATOCRIT 38.6 % (37.9-51.0); HEMOGLOBIN 13.1 g/dL (13.5-17.0); MEAN CORPUSCULAR HEMOGLOBIN 26.7 pg (27.0-33.4); MEAN CORPUSCULAR HGB CONC 33.9 g/dL (32.0-36.0); MEAN CORPUSCULAR VOLUME 79 fl (80-97); PLATELET COUNT 222 10^3/uL (150-450); RED BLOOD COUNT 4.91 10^6/uL (4.35-5.55)
[2020-01-30 10:43] LABS: INTERNATIONAL RATION (INR) 1.03; PROTHROMBIN TIME 13.7 SEC (11.4-15.4)
[2020-01-30 10:44] LABS: PARTIAL THROMBOPLASTIN TIME 27.7 SEC (23.5-35.8)
--- NOTE | 2020-01-30 10:48 | RADIOLOGY REPORT (SQ) ---
EXAM DESCRIPTION: TIBIA FIBULA LEFT IMAGES COMPLETED DATE/TIME: 01/30/2020 10:40 am REASON FOR STUDY: pain and injury COMPARISON: None. NUMBER OF VIEWS: Two views. TECHNIQUE: Two radiographic images acquired of the left tibia and fibula to include the knee and ank le in at least one projection. LIMITATIONS: None. FINDINGS: MINERALIZATION: Normal. BONES: No acute fracture or dislocation. No worrisome bone lesions. SOFT TISSUES: No obvious swelling or foreign body. OTHER: No other significant finding. IMPRESSION: NEGATIVE STUDY OF THE LEFT TIBIA AND FIBULA. NO RADIOGRAPHIC EVIDENCE OF ACUTE INJURY. TECHNICAL DOCUMENTATION: JOB ID: [id number] 2010 [employer]- All Rights Reserved Reading location - IP/workstation name: [email or web address]
[2020-01-30 10:49] LABS: ALKALINE PHOSPHATASE 70 U/L (38-126); ANION GAP 9 (5-19); ASPARTATE AMINO TRANSFERASE 48 U/L (17-59); BILIRUBIN,DIRECT 0.1 mg/dL (0.0-0.4); BILIRUBIN,TOTAL 0.6 mg/dL (0.2-1.3); BLOOD UREA NITROGEN 14 mg/dL (7-20); CARBON DIOXIDE 26 mmol/L (22-30); CHLORIDE 105 mmol/L (98-107); CREATINE KINASE 931 U/L (55-170); GLUCOSE 87 mg/dL (75-110); POTASSIUM 4.6 mmol/L (3.6-5.0); TOTAL PROTEIN 6.8 g/dL (6.3-8.2)
[2020-01-30 11:06] LABS: ABSOLUTE LYMPHOCYTES# (MANUAL) 1.6 10^3/uL (0.5-4.7); ABSOLUTE MONOCYTES # (MANUAL) 1.4 10^3/uL (0.1-1.4); BASOPHILS % (MANUAL) 2 % (0-2); EOSINOPHILS % (MANUAL) 0 % (0-6); LYMPHOCYTES % (MANUAL) 18 % (13-45); MONOCYTES % (MANUAL) 15 % (3-13); SEGMENTED NEUTROPHILS % (MAN) 65 % (42-78); TOTAL CELLS COUNTED 100
[2020-01-30 11:07] LABS: BURR CELLS 1+; POIKILOCYTOSIS 1+
[2020-01-30 11:08] LABS: OVALOCYTES 1+; PLATELET COMMENT ADEQUATE
--- NOTE | 2020-01-30 11:53 | ER Document Report ---
ED General - General Chief Complaint: Leg Pain Stated Complaint: LEFT PAIN Time Seen by Provider: 01/30/20 10:09 Primary Care Provider: THERESA DUENAS MD [Primary Care Provider] - Follow up as needed Mode of Arrival: Wheelchair TRAVEL OUTSIDE OF THE [place] IN LAST 30 DAYS: No - Related Data Allergies/Adverse Reactions: No Known Allergies Allergy (Verified 01/30/20 10:02) Past Medical History - General Information source: Patient - Social History Smoking Status: Never Smoker Chew tobacco use (# tins/day): No Frequency of alcohol use: None Family History: Reviewed & Not Pertinent Patient has homicidal ideation: No - Past Medical History Cardiac Medical History: Reports: Hx Hypertension Endocrine Medical History: Reports: Hx Diabetes Mellitus Type 2 - Diet- controlled Renal/ Medical History: Denies: Hx Peritoneal Dialysis Malignancy Medical History: Reports Hx Prostate Cancer Psychiatric Medical History: Denies: Hx Depression Physical Exam - Vital signs Vitals: Temp Pulse Resp BP Pulse Ox 97.6 F 88 18 187/100 H 96 01/30/20 09:25 01/30/20 09:25 01/30/20 09:25 01/30/20 09:25 01/30/20 09:25 Course - Vital Signs Vital signs: Temp Pulse Resp BP Pulse Ox 97.6 F 88 18 187/100 H 96 01/30/20 09:25 01/30/20 09:25 01/30/20 09:25 01/30/20 09:25 01/30/20 09:25 - Laboratory Result Diagrams: 01/30/20 10:21 01/30/20 10:21 Laboratory results interpreted by me: 01/30/20 01/30/20 10:21 10:21 Hgb 13.1 L MCV 79 L MCH 26.7 L RDW 18.0 H Monocytes % (Manual) 15 H Creatine Kinase 931 H Discharge - Discharge Referrals: THERESA DUENAS MD [Primary Care Provider] - Follow up as needed
--- NOTE | 2020-01-30 12:32 | RADIOLOGY REPORT (SQ) ---
EXAM DESCRIPTION: VENOUS UNILATERAL LOWER IMAGES COMPLETED DATE/TIME: 01/30/2020 12:23 pm REASON FOR STUDY: left calf pain and swelling COMPARISON: None. TECHNIQUE: Dynamic and static huitron scale and color images acquired of the left leg venous system. Se lected spectral images acquired with additional compression and augmentation maneuvers. The contralat eral common femoral vein and saphenofemoral junction were also imaged. Images stored on PACS. LIMITATIONS: None. FINDINGS: COMMON FEMORAL: Normal phasicity, compression and augmentation. No visualized echogenic ma terial on huitron scale. No defects on color images. FEMORAL: Normal compression and augmentation. No visualized echogenic material on huitron scale. No defe cts on color images. POPLITEAL: Normal compression, augmentation. No visualized echogenic material on huitron scale. No defec ts on color images. CALF VESSELS: Normal compression, augmentation. No visualized echogenic material on huitron scale. No de fects on color images. GSV and SSV: Normal compression, augmentation. No visualized echogenic material on huitron scale. No def ects on color images. ANY DEEP VENOUS INSUFFICIENCY: Not evaluated. ANY EVIDENCE OF POPLITEAL CYST: No. OTHER: There is a complex heterogeneous 3.5 x 2.8 x 1.1 cm mass within the upper calf muscle. CONTRALATERAL COMMON FEMORAL VEIN AND SAPHENOFEMORAL JUNCTION: Normal phasicity, compression and augmentation. No visualized echogenic material on huitron scale. No de fects on color images. IMPRESSION: No evidence of DVT or SVT in the left leg. Possible hematoma as described. TECHNICAL DOCUMENTATION: JOB ID: [id number] 2010 [employer]- All Rights Reserved Reading location - IP/workstation name: [email or web address]
[2020-01-30 12:38] VITALS: BP 172/90
--- NOTE | 2020-01-30 13:15 | ER Document Report ---
ED Extremity Problem, Lower - General Chief Complaint: Leg Pain Stated Complaint: LEFT PAIN Time Seen by Provider: 01/30/20 10:09 Primary Care Provider: THERESA DUENAS MD [Primary Care Provider] - Follow up as needed Mode of Arrival: Wheelchair Notes: 64-year-old man presenting to the emergency department with a complaint of pain in the back of the left leg. Apparently he was jumping over a ditch last night when he felt a sudden sharp pain behind his leg. He is not sure what struck his leg. Since that time of the injury he has had pain and swelling and difficulty walking secondary to pain. He denies any other injury or difficulty. TRAVEL OUTSIDE OF THE [place] IN LAST 30 DAYS: No - Related Data Allergies/Adverse Reactions: No Known Allergies Allergy (Verified 01/30/20 10:02) Past Medical History - General Information source: Patient - Social History Smoking Status: Never Smoker Chew tobacco use (# tins/day): No Frequency of alcohol use: None Family History: Reviewed & Not Pertinent Patient has homicidal ideation: No - Past Medical History Cardiac Medical History: Reports: Hx Hypertension Endocrine Medical History: Reports: Hx Diabetes Mellitus Type 2 - Diet- controlled Renal/ Medical History: Denies: Hx Peritoneal Dialysis Malignancy Medical History: Reports Hx Prostate Cancer Psychiatric Medical History: Denies: Hx Depression Review of Systems - Review of Systems Notes: Constitutional: Negative for fever. HENT: Negative for sore throat. Eyes: Negative for visual changes. Cardiovascular: Negative for chest pain. Respiratory: Negative for shortness of breath. Gastrointestinal: Negative for abdominal pain, vomiting or diarrhea. Genitourinary: Negative for dysuria. Musculoskeletal: See HPI Skin: Negative for rash. Neurological: Negative for headaches, weakness or numbness. 10 point ROS negative except as marked above and in HPI. Physical Exam - Vital signs Vitals: Temp Pulse Resp BP Pulse Ox 97.6 F 88 18 187/100 H 96 01/30/20 09:25 01/30/20 09:25 01/30/20 09:25 01/30/20 09:25 01/30/20 09:25 - Notes Notes: PHYSICAL EXAMINATION: Physical Exam: General: Well-nourished well-developed 64-year-old man in no acute distress HEENT: NC/AT, pupils equal round and reactive to light, MM moist,nares clear, oropharynx clear, airway patent Neck: supple, no adenopathy, no masses. Good range of motion Lungs: clear, no wheezing, no rales no rhonchi CVS: Regular rate and rhythm no murmur gallop or rub Abdomen: Soft, active, nontender, no masses, no hepatosplenomegaly Ext: + Tenderness in the posterior aspect of the left leg, + swelling and no deformity, no crepitus, Achilles intact no deformity or step-off. Neuro: Alert and responsive, moving all 4 extremities on command, cranial nerves intact, no focal findings Skin: Intact no open lesions, no rash PSYCH: Normal mood, normal affect. Course - Re-evaluation Re-evalutation: 01/30/20 13:12 Differential diagnosis Muscle contusion, fracture, DVT, Achilles injury - Vital Signs Vital signs: Temp Pulse Resp BP Pulse Ox 97.6 F 88 18 172/90 H 96 01/30/20 09:25 01/30/20 09:25 01/30/20 09:25 01/30/20 12:37 01/30/20 09:25 - Laboratory Result Diagrams: 01/30/20 10:21 01/30/20 10:21 Laboratory results interpreted by me: 01/30/20 01/30/20 10:21 10:21 Hgb 13.1 L MCV 79 L MCH 26.7 L RDW 18.0 H Monocytes % (Manual) 15 H Creatine Kinase 931 H 01/30/20 13:11 I have reviewed laboratory data and used this information for the treatment decisions regarding the patient. - Diagnostic Test Radiology reviewed: Image reviewed, Reports reviewed Radiology results interpreted by me: 01/30/20 13:13 Venous Doppler Study 01/30/20 10:13 IMPRESSION: No evidence of DVT or SVT in the left leg. Possible hematoma as described. Tibia/Fibula X-Ray 01/30/20 10:14 IMPRESSION: NEGATIVE STUDY OF THE LEFT TIBIA AND FIBULA. NO RADIOGRAPHIC EVIDENCE OF ACUTE INJURY. Discharge - Discharge Clinical Impression: Contusion of left leg Qualifiers: Encounter type: initial encounter Qualified Code(s): S80.12XA - Contusion of left lower leg, initial encounter Hematoma of left lower extremity Qualifiers: Encounter type: initial encounter Qualified Code(s): S80.12XA - Contusion of left lower leg, initial encounter Condition: Good Disposition: HOME, SELF-CARE Instructions: Contusion ([facility]) Additional Instructions: You are seen in the emergency department today with a injury to your left lower extremity. There was no fracture or blood clot noted on the imaging studies, however you did sustain a contusion with swelling and tenderness. Please use a cold compress to the area of pain and swelling. Use ibuprofen or Tylenol for pain, elevate the extremity. Patient symptoms are worsening or if you have other concerns you may return to the emergency department for further evaluation and treatment HOME CARE INSTRUCTIONS & INFORMATION: Thank you for choosing us for your medical needs. We hope you're satisfied with the care you received. After you leave, you must properly care for your problem and, at the same time, observe its progress. Any condition can change. Some illnesses can change rapidly over hours or days. If your condition worsens, return to the Emergency Department or see your physician promptly. ABOUT YOUR X-RAYS AND EKG'S: If you had an EKG or X-rays taken, they have been read by the Emergency Physician. The X-rays and EKG's will also be read by a Radiologist or Wharf Tally Clerk within 24 hours. If discrepancies are noted, you will be notified by telephone. Please be certain the ED has a correct telephone number & address where you can be reached. Also, realize that some fractures or abnormalities do not show up on initial X-rays. If your symptoms continue, see your physician. ABOUT YOUR LABORATORY TEST: If you had laboratory tests, the results have been reviewed by the Emergency Physician. Some test results (for example cultures) may not be available for several days. You will be contacted if any test result shows you need additional treatment. Please be certain the ED has a correct telephone number and address where you can be reached. ABOUT YOUR MEDICATIONS: You will receive instructions on how to take your medicine on the prescription label you receive. Additional information may be provided by the Pharmacy. If you have questions afterwards, call the ED for clarification or further instructions. Some prescribed medications may cause drowsiness. Do not perform tasks such as driving a car or operating machinery without consulting your Pharmacist. If you feel you need a refill of pain medication, your condition will need re-evaluation. Please do not call for a refill of any medication. ABOUT YOUR SIGNATURE: Signature of this document acknowledges to followin. Understanding that you received emergency treatment and that you may be released before al medical problems are known or treated. Please be certain the ED has a correct phone number & address where you can be reached. 2. Acknowledgement that you will arrange for follow-up care as recommended. 3. Authorization for the Emergency Physician to provide information to your follow-up Physician in order to maximize your care. AT ANY TIME, IF YOUR SYMPTOMS CHANGE SIGNIFICANTLY OR WORSEN OR YOU DEVELOP NEW SYMPTOMS, RETURN TO THE EMERGENCY DEPARTMENT IMMEDIATELY FOR RE-EVALUATION. OUR GOAL IS TO PROVIDE EXCELLENT MEDICAL CARE! WE HOPE THAT WE HAVE MET YOUR EXPECTATIONS DURING YOUR EMERGENCY DEPARTMENT VISIT AND THAT YOU FEEL YOU HAVE RECEIVED EXCELLENT CARE! Prescriptions: Ibuprofen [Motrin 800 mg Tablet] 800 mg PO Q8H PRN #30 tab PRN Reason: For Pain Referrals: THERESA DUENAS MD [Primary Care Provider] - Follow up as needed
[2020-01-30] MEDS ORDERED: IBUPROFEN 800 MG TABLET PO ONE (13:21)
== END 2020-01-30 13:46 | disposition home or self-care (01) ==
LOC: ER 09:04
DX: S80.12XA Contusion of left lower leg, initial encounter (principal); X58.XXXA Exposure to other specified factors, initial encounter; I10 Essential (primary) hypertension; E11.9 Type 2 diabetes mellitus without complications
CPT/HCPCS: 36415; 80053; 82550; 85025; 85610; 85730; 93971; 99285

== ENCOUNTER 2020-02-01 18:36 | Emergency (ER) | payer MEDICARE ==
[2020-02-01 18:43] VITALS: BP 154/78
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
[2020-02-01 21:16] LABS: HEMATOCRIT 34.9 % (37.9-51.0); HEMOGLOBIN 11.9 g/dL (13.5-17.0); MEAN CORPUSCULAR HGB CONC 34.2 g/dL (32.0-36.0); MEAN CORPUSCULAR VOLUME 79 fl (80-97); PLATELET COUNT 206 10^3/uL (150-450); RED BLOOD COUNT 4.43 10^6/uL (4.35-5.55); RED CELL DISTRIBUTION WIDTH 17.9 % (11.5-14.0); WHITE BLOOD COUNT 11.5 10^3/uL (4.0-10.5)
[2020-02-01 21:23] LABS: APPEARANCE,URINE SLIGHTLY-CLOUDY; BILIRUBIN,URINE NEGATIVE (NEGATIVE); GLUCOSE, URINE NEGATIVE (NEGATIVE); KETONES,URINE NEGATIVE (NEGATIVE); LEUKOCYTE ESTERASE,URINE NEGATIVE (NEGATIVE); NITRITE,URINE NEGATIVE (NEGATIVE); PROTEIN,URINE >=500 mg/dL (NEGATIVE); URINE SPECIFIC GRAVITY 1.024
[2020-02-01 21:27] LABS: COLOR,URINE YELLOW; INTERNATIONAL RATION (INR) 1.04; PROTHROMBIN TIME 13.8 SEC (11.4-15.4)
[2020-02-01 21:28] LABS: PARTIAL THROMBOPLASTIN TIME 32.9 SEC (23.5-35.8)
[2020-02-01 21:30] LABS: ALBUMIN 3.8 g/dL (3.5-5.0); ALKALINE PHOSPHATASE 59 U/L (38-126); ANION GAP 14 (5-19); ASPARTATE AMINO TRANSFERASE 47 U/L (17-59); BILIRUBIN,DIRECT 0.3 mg/dL (0.0-0.4); BILIRUBIN,TOTAL 0.9 mg/dL (0.2-1.3); BLOOD UREA NITROGEN 13 mg/dL (7-20); CALCIUM 9.7 mg/dL (8.4-10.2); CARBON DIOXIDE 24 mmol/L (22-30); CHLORIDE 100 mmol/L (98-107); CREATINE KINASE 897 U/L (55-170); GLUCOSE 106 mg/dL (75-110); POTASSIUM 4.3 mmol/L (3.6-5.0); TOTAL PROTEIN 6.5 g/dL (6.3-8.2)
[2020-02-01 21:46] LABS: ABSOLUTE MONOCYTES # (MANUAL) 1.7 10^3/uL (0.1-1.4); BASOPHILS % (MANUAL) 0 % (0-2); EOSINOPHILS % (MANUAL) 0 % (0-6); LYMPHOCYTES % (MANUAL) 17 % (13-45); MONOCYTES % (MANUAL) 15 % (3-13); SEGMENTED NEUTROPHILS % (MAN) 68 % (42-78); TOTAL CELLS COUNTED 100
[2020-02-01 21:49] LABS: ANISOCYTOSIS 1+; PLATELET COMMENT ADEQUATE; POLYCHROMASIA SLIGHT
--- NOTE | 2020-02-01 21:51 | RADIOLOGY REPORT (SQ) ---
Left tibia and fibula x-ray two views on 02/01/2020 at 8:55 PM CLINICAL INDICATION: Pain and swelling COMPARISON: 01/30/2020 FINDINGS: Soft tissue swelling is noted in the lower leg. There is no radiopaque foreign body. Visualized joints are well aligned. There are no fractures. No bony abnormality is noted. IMPRESSION: No acute bony abnormality.
== END 2020-02-01 21:00 | disposition left against medical advice (07) ==
LOC: ER 18:36
DX: Z53.20 Procedure and treatment not carried out because of patient's decision for unspecified reasons (principal); R79.89 Other specified abnormal findings of blood chemistry; M79.89 Other specified soft tissue disorders
CPT/HCPCS: 36415; 80053; 81001; 82550; 85025; 85610; 85730; 93971; 99281

== ENCOUNTER → 2020-02-01 | Outpatient (CLI) | payer MEDICARE ==
--- NOTE | 2020-02-01 18:21 | RADIOLOGY REPORT (SQ) ---
EXAM DESCRIPTION: VENOUS UNILATERAL LOWER IMAGES COMPLETED DATE/TIME: 02/01/2020 6:00 pm REASON FOR STUDY: SWELLING LEFT LEG R22.42 LOCALIZED SWELLING, MASS AND LUMP, LEFT LOWER LIMB COMPARISON: None. TECHNIQUE: Dynamic and static huitron scale and color images acquired of the left leg venous system. Se lected spectral images acquired with additional compression and augmentation maneuvers. The contralat eral common femoral vein and saphenofemoral junction were also imaged. Images stored on PACS. LIMITATIONS: None. FINDINGS: COMMON FEMORAL: Normal phasicity, compression and augmentation. No visualized echogenic ma terial on huitron scale. No defects on color images. FEMORAL: Normal compression and augmentation. No visualized echogenic material on huitron scale. No defe cts on color images. POPLITEAL: Normal compression, augmentation. No visualized echogenic material on huitron scale. No defec ts on color images. CALF VESSELS: Normal compression, augmentation. No visualized echogenic material on huitron scale. No de fects on color images. GSV and SSV: Normal compression, augmentation. No visualized echogenic material on huitron scale. No def ects on color images. ANY DEEP VENOUS INSUFFICIENCY: Not evaluated. ANY EVIDENCE OF POPLITEAL CYST: No. OTHER: Heterogeneous mass in the calf measuring 3.5 x 2.8 x 1.1 cm. Likely hematoma. CONTRALATERAL COMMON FEMORAL VEIN AND SAPHENOFEMORAL JUNCTION: Normal phasicity, compression and augmentation. No visualized echogenic material on huitron scale. No de fects on color images. IMPRESSION: NO EVIDENCE DVT OR SVT IN THE LEFT LEG. Likely left calf hematoma. TECHNICAL DOCUMENTATION: JOB ID: [id number] 2010 [employer]- All Rights Reserved Reading location - IP/workstation name: [email or web address]
== END ==
LOC: SP 16:40
PROVIDERS: ATTEND Internal Medicine
DX: R22.42 Localized swelling, mass and lump, left lower limb (principal)
CPT/HCPCS: 93971